=== PATIENT | male | born 1995 | race Caucasian/White ===

== ENCOUNTER 2018-03-30 08:20 | Inpatient (IN) | payer OTHER ==
[2018-03-30 08:48] VITALS: BMI 20.9
--- NOTE | 2018-03-30 11:13 | HP ---
COWS - Scale Resting Pulse: 0= [place] 80 or Below Sweatin= Chills/Flushing Restless Observation: 3= Extraneous Movement Pupil Size: 2= Moderately Dilated Bone or Joint Aches: 2= Severe Diffuse Aches Runny Nose/ Eye Tearin= Runny Nose/Eyes GI Upset > 30mins: 3= Vomiting/Diarrhea Tremor Observation: 2= Slight Tremor Visible Yawning Observation: 2= >3x During Session Anxiety or Irritability: 2=Irritable/Anxious Goose Flesh Skin: 0=Smooth Skin COWS Score: 19 CIWA Score - CIWA Score Nausea/Vomitin Muscle Tremors: 3 Anxiety: 3 Agitation: 2 Paroxysmal Sweats: 1-Minimal Palms Moist Orientation: 0-Oriented Tacttile Disturbances: 1-Very Mild Itch/Numbness Auditory Disturbances: 1-Very Mild Visual Disturbances: 0-None Headache: 2-Mild CIWA-Ar Total Score: 16 Admission ROS BHS - HPI Chief Complaint: i need help to stop using heroin,alcohol and crack Allergies/Adverse Reactions: Allergies Allergy/AdvReac Type Severity Reaction Status Date / Time buprenorphine HCl Allergy Severe Itching Verified 03/30/18 10:30 [From Suboxone] naloxone HCl [From Suboxone] Allergy Severe Itching Verified 03/30/18 10:30 History of Present Illness: this 22 years old male with heroin,alcohol and crack dependence,seeking detox, withdrawal symptom,last treatment at [facility] in 2017 syncope anxiety,depression multiple admissions in the past,keep relapsing weight loss longest period of sobriety 6 months Exam Limitations: No Limitations - Ebola screening Have you traveled outside of the country in the last 21 days: No Have you had contact with anyone from an Ebola affected area: No Have you been sick,other than usual withdrawal symptoms: No Do you have a fever: No - Review of Systems Constitutional: Chills, Loss of Appetite, Malaise, Night Sweats, Changes in sleep, Weakness, Unintentional Wgt. Loss EENT: reports: Tearing, Nose Congestion Respiratory: reports: No Symptoms reported Cardiac: reports: No Symptoms Reported GI: reports: Diarrhea, Nausea, Vomiting, Abdominal cramping : reports: No Symptoms Reported Musculoskeletal: reports: Back Pain, Muscle Pain Integumentary: reports: Dryness Neuro: reports: Headache, Tremors Endocrine: reports: No Symptoms Reported Hematology: reports: No Symptoms Reported Psychiatric: reports: No Sypmtoms Reported, Judgement Intact, Mood/Affect Appropiate, Orientated x3, Anxious, Depressed Patient History - Patient Medical History Hx Anemia: No Hx Asthma: No Hx Chronic Obstructive Pulmonary Disease (COPD): No Hx Cancer: No Hx Cardiac Disorders: No Hx Congestive Heart Failure: No Hx Hypertension: No Hx Hypercholesterolemia: No Hx Pacemaker: No HX Cerebrovascular Accident: No Hx Seizures: No Hx Dementia: No Hx Diabetes: No Hx Gastrointestinal Disorders: No Hx Liver Disease: No Hx Genitourinary Disorders: No Hx Sexually Transmitted Disorders: No Hx Renal Disease (ESRD): No Hx Thyroid Disease: No Hx Human Immunodeficiency Virus (HIV): No (negative 2017 nrgative) Hx Hepatitis C: No Hx Depression: Yes (anxiety) Hx Suicide Attempt: No Hx Bipolar Disorder: No Hx Schizophrenia: No Other Medical History: no suicidal,no homicidal - Patient Surgical History Past Surgical History: No Hx Neurologic Surgery: No Hx Cataract Extraction: No Hx Cardiac Surgery: No Hx Lung Surgery: No Hx Breast Surgery: No Hx Breast Biopsy: No Hx Abdominal Surgery: No Hx Appendectomy: No Hx Cholecystectomy: No Hx Genitourinary Surgery: No Hx Section: No Hx Orthopedic Surgery: No Anesthesia Reaction: No - PPD History Previous Implant?: Yes Documented Results: Negative w/proof Implanted On Prior [facility] Admission?: Yes Date: 01/03/15 Results: 0 mm PPD to be Administered?: Yes - Smoking Cessation Smoking history: Current every day smoker Have you smoked in the past 12 months: Yes Aproximately how many cigarettes per day: 20 Cigars Per Day: 0 Hx Chewing Tobacco Use: No Initiated information on smoking cessation: Yes 'Breaking Loose' booklet given: 03/30/18 - Substance & Tx. History Hx Alcohol Use: Yes Hx Substance Use: Yes Substance Use Type: Alcohol, Cocaine, Heroin Hx Substance Use Treatment: Yes ([facility] 2016) - Substances Abused Heroin Route: Inhalation Frequency: Daily Amount used: 3-4 bags Age of first use: 19 Date of Last Use: 03/29/18 Crack Route: Smoking Frequency: Daily Amount used: $100 Age of first use: 19 Date of Last Use: 03/29/18 Alcohol-vodka/beer Route: Oral Frequency: Daily Amount used: 1 pt./1-6 pk. Age of first use: 11 Date of Last Use: 03/29/18 Family Disease History - Family Disease History Family Disease History: Other: Father (dsa), Sister (alcohol) Admission Physical Exam [facility] - Vital Signs Vital Signs: Vital Signs - 24 hr 03/30/18 08:43 Temperature 98.4 F Pulse Rate 77 Respiratory 18 Rate Blood Pressure 108/68 - Physical General Appearance: Yes: Moderate Distress, Tremorous, Irritable, Sweating, Anxious HEENTM: Yes: Normal ENT Inspection, RAMIRO, Pharynx Normal, Other (abrasion of nose stated scratch herself rash of neck) Respiratory: Yes: Lungs Clear, Normal Breath Sounds, No Respiratory Distress Neck: Yes: Within Normal Limits, Supple, Trachea in good position, Other (rash of neck) Breast: Yes: Within Normal Limits Cardiology: Yes: Within Normal Limits, Regular Rhythm, Regular Rate, S1, S2 Abdominal: Yes: Within Normal Limits, Normal Bowel Sounds, Non Tender, Soft Genitourinary: Yes: Within Normal Limits Back: Yes: Muscle Spasm Musculoskeletal: Yes: Within Normal Limits, Muscle Pain Extremities: Yes: Tremors Neurological: Yes: missileman II-XII NML intact, Alert, Motor Strength 5/5 Integumentary: Yes: Dry Lymphatic: Yes: Within Normal Limits - Diagnostic (1) Opioid dependence with withdrawal Current Visit: Yes Status: Acute (2) Alcohol dependence with uncomplicated withdrawal Current Visit: Yes Status: Acute (3) Weight loss Current Visit: Yes Status: Acute (4) Nicotine dependence Current Visit: Yes Status: Acute (5) Abrasion Current Visit: Yes Status: Acute (6) Anxiety and depression Current Visit: Yes Status: Acute Cleared for Admission [facility] - Detox or Rehab [facility] Level of Care: Medically Managed Detox Regimen/Protocol: Methadone/Librium [facility] Breath Alcohol Content Breath Alcohol Content: 0 Urine Drug Screen - Results Drug Screen Negative: No Urine Drug Screen Results: ABIEL-Cocaine, OPI-Opiates
[2018-03-30] MEDS ORDERED: LOPERAMIDE HCL 2 MG CAPSULE PO PRN (11:30)
[2018-03-30] MEDS ORDERED: MAG HYDROX/AL HYDROX/SIMETH 30 ML UNIT-DOSE CUP PO PRN (11:30)
[2018-03-30] MEDS ORDERED: IBUPROFEN 400 MG TABLET (FP) PO PRN (11:30)
[2018-03-30] MEDS ORDERED: MENTHOL/PHENOL 1 EACH UD MM PRN (11:30)
[2018-03-30] MEDS ORDERED: MAGNESIUM HYDROX 2400MG/30ML ORAL SUSPENSION 30 ML CUP PO PRN (11:30)
[2018-03-30] MEDS ORDERED: hydrOXYzine PAMOATE 25 MG CAPSULE (FP) PO PRN (11:30)
[2018-03-30] MEDS ORDERED: P-EPHED 60MG/TRIPROLIDI 2.5MG TABLET PO PRN (11:30)
[2018-03-30] MEDS ORDERED: ACETAMINOPHEN 325 MG TABLET (FP) PO PRN (11:30)
[2018-03-30] MEDS ORDERED: guaiFENesin/D-METHORPHAN HB 10 ML UNIT-DOSE CUPS PO PRN (11:30)
[2018-03-30] MEDS ORDERED: MAGNESIUM CITRATE 300 ML BOTTLE PO PRN (11:30)
[2018-03-30] MEDS ORDERED: chlordiazePOXIDE HCL 25 MG CAPSULE PO PRN (11:30)
[2018-03-30] MEDS ORDERED: METHADONE HCL 10 MG TABLET (FOR DETOX USE ONLY) PO ONE ×2 (11:45→23:00)
[2018-03-30] MEDS: NICOTINE POLACRILEX 2 MG GUM BUC PRN ×4 (12:38→22:24)
--- NOTE | 2018-03-30 14:13 | CONSULT ---
[facility] Psychiatric Consult - Data Date of interview: 03/30/18 Admission source: [facility] Identifying data: Readmission to [facility] for this 22 y/o male seeking detox treatment on for alcohol,heroin and cocaine dependence.Patient is single without dependents,homeless,unemployed and supported on SSI benefits. Substance Abuse History: Discussed in this interview.Reported by the patient on admission to [facility] : Smoking history: Current every day smoker. Have you smoked in the past 12 months: Yes. Aproximately how many cigarettes per day: 20. Cigars Per Day: 0. Hx Chewing Tobacco Use: No. Initiated information on smoking cessation: Yes. 'Breaking Loose' booklet given: 03/30/18. - Substance & Tx. History. Hx Alcohol Use: Yes. Hx Substance Use: Yes. Substance Use Type : Alcohol, Cocaine, Heroin. Hx Substance Use Treatment: Yes ([facility] 2016). - Substances Abused. Heroin. Route: Inhalation. Frequency: Daily. Amount used: 3-4 bags. Age of first use: 19. Date of Last Use: 03/29/18. * * Crack. Route: Smoking. Frequency: Daily. Amount used: $100. Age of first use: 19. Date of Last Use: 03/29/18. Alcohol-vodka/beer. Route: Oral. Frequency: Daily. Amount used: 1 pt./1-6 pk. Age of first use: 11. Date of Last Use: 03/29/18 Medical History: Patient endorses good general health.Noted abrasion on the nose.Patient reports allergy to buprenorphine and naloxone. Psychiatric History: Onset on psychiatric disturbances (age 11-12).First psychiatric treatment was at [facility] for the management of an eating disorder (unclear).It appears that, at the time, the patient's nutritional status became compromised because of decreased food intake due to irrational fear of choking.Treated, then, with Risperdal and Luvox.Patient endorses a history of 4-5 psychiatric hospitalizations (all at [facility] in [facility]).Past treatment with abilify and anafranil.Diagnosed with Generalized Anxiety Disorder.Mr Rivas is currently in OPD treatment at [facility] in [place].On a regimen of risperdal 1 mg/hs + zoloft 100 mg/day.Adherence remains questionable.Patient denies history of suicide attempts. Physical/Sexual Abuse/Trauma History: Patient denies history of abuse. Additional Comment: Urine Drug Screen Results: ABIEL-Cocaine, OPI-Opiates.Noted. Mental Status Exam - Mental Status Exam Alert and Oriented to: Time, Place Cognitive Function: Good Patient Appearance: Unkempt, Disheveled (tattoo of a skull with a penetrating sword painted on left forearm) Mood: Nervous, Withdrawn, Anxious Affect: Mood Congruent, Constricted Patient Behavior: Fatigued, Cooperative Speech Pattern: Clear, Appropriate Voice Loudness: Normal Thought Process: Intact, Goal Oriented Thought Disorder: Not Present Hallucinations: Denies Suicidal Ideation: Denies Homicidal Ideation: Denies Insight/Judgement: Poor Sleep: Poorly, Difficulty falling asleep Appetite: Good Muscle strength/Tone: Normal Gait/Station: Normal Psychiatric Findings - Problem List ([place] 1, 2,3) (1) Alcohol dependence with uncomplicated withdrawal Current Visit: Yes Status: Acute (2) Opioid dependence with withdrawal Current Visit: Yes Status: Acute (3) Cocaine dependence Current Visit: Yes Status: Acute (4) Nicotine dependence Current Visit: Yes Status: Acute (5) PENNIE (generalized anxiety disorder) Current Visit: Yes Status: Chronic (6) Substance induced mood disorder Current Visit: Yes Status: Acute (7) Insomnia Current Visit: Yes Status: Acute - Initial Treatment Plan Initial Treatment Plan: Psychoeducation.Sleep hygiene.Detoxification in progress.Medications : zoloft 100 mg po daily + risperdal 1 mg po hs.Side effects/benefits of both drugs are explained to the patient.Additional risks for sexual impotence,galactorrhea,gynecomastia,abnormal involuntary movements, dyskinesias and suicidal ideation.Also discussed.Patient endorses his medications as effective and well tolerated.Mr Rivas requests their inclusion in his current regime of medications.Observation.
[2018-03-30] MEDS: chlordiazePOXIDE HCL 25 MG CAPSULE PO SCH ×2 (17:39→22:25)
[2018-03-30] MEDS ORDERED: risperiDONE 1 MG TABLET (FP) PO SCH (22:00)
[2018-03-30] MEDS ORDERED: MELATONIN 5 MG TABLETS PO PRN (22:00)
[2018-03-30] MEDS ORDERED: THIAMINE HCL 100 MG TABLET (FP) PO SCH (22:00)
--- NOTE | 2018-03-30 23:24 | PN ---
[facility] Progress Note Note: Called regarding patient B/P of 99/55 and HR;71. Patient was due Methadone and Librium. Patient w/o tremors or other alcohol w/drawal symptoms. Vital Signs 03/30/18 03/30/18 03/30/18 18:00 21:24 22:00 Temperature 97.6 F 97.0 F L Pulse Rate 76 55 L 71 Respiratory 18 18 Rate Blood Pressure 108/61 97/45 99/55 Hold Libruim and give Methadone. Encourage increased water intake.
[2018-03-31] MEDS: NICOTINE POLACRILEX 2 MG GUM BUC PRN (05:28)
[2018-03-31] MEDS: chlordiazePOXIDE HCL 25 MG CAPSULE PO SCH (06:33)
[2018-03-31] MEDS ORDERED: SERTRALINE HCL 50 MG TABLET (FP) PO SCH (07:00)
[2018-03-31 09:33] VITALS: BP 110/66; PULSE 73; TEMP 97.4
[2018-03-31] MEDS ORDERED: PRENATAL VITAMINS W/ FOLIC ACID TABLET (FP) PO SCH (10:00)
[2018-03-31] MEDS ORDERED: METHADONE HCL 10 MG TABLET (FOR DETOX USE ONLY) PO SCH (10:00)
[2018-03-31 10:29] LABS: HEMATOCRIT 39.4 % (35.4-49); HEMOGLOBIN 13.5 GM/dL (11.7-16.9); MCH 30.6 pg (25.7-33.7); MCHC 34.2 g/dl (32.0-35.9); MEAN CELL VOLUME 89.5 fl (80-96); MEAN PLT VOLUME 8.7 fl (7.5-11.1); PLATELET COUNT 267 K/MM3 (134-434); WHITE BLOOD COUNT 8.7 K/mm3 (4.0-10.0)
[2018-03-31 11:15] LABS: ALBUMIN 4.2 g/dl (3.4-5.0); ANION GAP 5 (8-16); BLOOD UREA NITROGEN 24 mg/dL (7-18); CALCIUM 9.1 mg/dL (8.5-10.1); CHLORIDE 105 mmol/L (98-107); CO2 29 mmol/L (21-32); GLUCOSE,RANDOM 97 mg/dL (74-106); POTASSIUM 4.3 mmol/L (3.5-5.1); SGOT/AST 62 U/L (15-37); SGPT/ALT 27 U/L (12-78); SODIUM 139 mmol/L (136-145)
[2018-03-31 11:16] LABS: ALK PHOS 74 U/L (45-117); BILIRUBIN,TOTAL 0.7 mg/dL (0.2-1.0); CREATININE 1.3 mg/dL (0.7-1.3); TOT PROT 7.3 g/dl (6.4-8.2)
--- NOTE | 2018-03-31 14:15 | PN ---
S CIWA - CIWA Score Nausea/Vomitin-No Nausea/No Vomiting Muscle Tremors: 3 Anxiety: 4-Mod. Anxious/Guarded Agitation: 4-Moderately Restless Paroxysmal Sweats: 3 Orientation: 0-Oriented Tacttile Disturbances: 2-Mild Itch/Numbness/Burn Auditory Disturbances: 0-None Visual Disturbances: 1-Very Mild Sensitivity Headache: 0-None Present CIWA-Ar Total Score: 17 BHS COWS - Scale Resting Pulse: 0= [place] 80 or Below Sweatin= Chills/Flushing Restless Observation: 1= Difficult to Sit Still Pupil Size: 0= Normal to Room Light Bone or Joint Aches: 2= Severe Diffuse Aches Runny Nose/ Eye Tearin= Nasal Congestion GI Upset > 30mins: 0= None Tremor Observation of Outstretched Hands: 2= Slight Tremor Visible Yawning Observation: 1= 1-2x During Session Anxiety or Irritability: 2=Irritable/Anxious Goose Flesh Skin: 3=Piloerection COWS Score: 13 BHS Progress Note (SOAP) Subjective: Sweating, Anxious, Body Aches, Tremors. Objective: PATIENT A & O X 3, OBSERVED AMBULATING ON UNIT. NO ACUTE DISTRESS. 03/31/18 14:13 Vital Signs Temperature 97.4 F L 03/31/18 09:32 Pulse Rate 73 03/31/18 09:32 Respiratory Rate 16 03/31/18 09:32 Blood Pressure 110/66 03/31/18 09:32 O2 Sat by Pulse Oximetry (%) Laboratory Tests 03/30/18 03/31/18 03/31/18 11:00 06:00 06:00 WBC 8.7 RBC 4.40 Hgb 13.5 Hct 39.4 MCV 89.5 MCH 30.6 MCHC 34.2 RDW 14.0 Plt Count 267 MPV 8.7 Sodium 139 Potassium 4.3 Chloride 105 Carbon Dioxide 29 Anion Gap 5 L BUN 24 H Creatinine 1.3 Creat Clearance w eGFR > 60 Random Glucose 97 D Calcium 9.1 Total Bilirubin 0.7 AST 62 H D ALT 27 D Alkaline Phosphatase 74 Total Protein 7.3 Albumin 4.2 RPR Titer HIV 1&2 Antibody Screen Negative HIV P24 Antigen Negative 03/31/18 06:00 WBC RBC Hgb Hct MCV MCH MCHC RDW Plt Count MPV Sodium Potassium Chloride Carbon Dioxide Anion Gap BUN Creatinine Creat Clearance w eGFR Random Glucose Calcium Total Bilirubin AST ALT Alkaline Phosphatase Total Protein Albumin RPR Titer Nonreactive HIV 1&2 Antibody Screen HIV P24 Antigen LABS NOTED. UA RESULTS PENDING. 03/31/18 14:14 Assessment: 03/31/18 14:13 WITHDRAWAL SYMPTOMS. Plan: CONTINUE DETOX. INCREASE DAILY PO FLUID INTAKE.
--- NOTE | 2018-03-31 14:19 | DS ---
[facility] Detox Discharge Summary Admission Date: 03/30/18 Discharge Date: 03/31/18 - History Present History: Alcohol Dependence, Cocaine Dependence, Opioid Dependence Additional Comments: PATIENT DOES NOT WISH TO REMAIN TO COMPLETE DETOX REGIMEN. RISKS OF LEAVING DETOX UNIT AGAINST MEDICAL ADVICE AND PRIOR TO COMPLETION OF DETOX REGIMEN EXPLAINED TO PATIENT. PATIENT ADVISED TO GO IMMEDIATELY TO NEAREST ER SHOULD ANY INTOLERABLE DETOX SYMPTOMS DEVELOP AT ANY TIME. PATIENT LEFT DETOX UNIT IN STABLE MEDICAL CONDITION. Pertinent Past History: History of Depression, History of Generalized Anxiety Disorder, Nicotine Dependence, Insomnia, Weight Loss, Abrasion. - Physical Exam Results Vital Signs: Vital Signs Temperature 97.4 F L 03/31/18 09:32 Pulse Rate 73 03/31/18 09:32 Respiratory Rate 16 03/31/18 09:32 Blood Pressure 110/66 03/31/18 09:32 O2 Sat by Pulse Oximetry (%) Pertinent Admission Physical Exam Findings: WITHDRAWAL SYMPTOMS. Laboratory Tests 03/30/18 03/31/18 03/31/18 11:00 06:00 06:00 WBC 8.7 RBC 4.40 Hgb 13.5 Hct 39.4 MCV 89.5 MCH 30.6 MCHC 34.2 RDW 14.0 Plt Count 267 MPV 8.7 Sodium 139 Potassium 4.3 Chloride 105 Carbon Dioxide 29 Anion Gap 5 L BUN 24 H Creatinine 1.3 Creat Clearance w eGFR > 60 Random Glucose 97 D Calcium 9.1 Total Bilirubin 0.7 AST 62 H D ALT 27 D Alkaline Phosphatase 74 Total Protein 7.3 Albumin 4.2 RPR Titer HIV 1&2 Antibody Screen Negative HIV P24 Antigen Negative 03/31/18 06:00 WBC RBC Hgb Hct MCV MCH MCHC RDW Plt Count MPV Sodium Potassium Chloride Carbon Dioxide Anion Gap BUN Creatinine Creat Clearance w eGFR Random Glucose Calcium Total Bilirubin AST ALT Alkaline Phosphatase Total Protein Albumin RPR Titer Nonreactive HIV 1&2 Antibody Screen HIV P24 Antigen LABS NOTED. - Treatment Hospital Course: Detoxed Safely - Medication Discharge Medications: Ambulatory Orders Risperidone [Risperdal] 1 mg PO HS 03/30/18 Sertraline HCl [Zoloft] 100 mg PO AM 03/30/18 - Diagnosis (1) Alcohol dependence with uncomplicated withdrawal Status: Acute (2) Nicotine dependence Status: Acute Qualifiers: Nicotine product type: cigarettes Substance use status: uncomplicated Qualified Code(s): F17.210 - Nicotine dependence, cigarettes, uncomplicated (3) Opioid dependence with withdrawal Status: Acute (4) Weight loss Status: Acute (5) PENNIE (generalized anxiety disorder) Status: Chronic (6) Substance induced mood disorder Status: Acute - AMA Did Patient Leave Against Medical Advice: Yes (PATIENT DID NOT WISH TO REMAIN TO COMPLETE DETOX REGIMEN.)
[2018-03-31] MEDS ORDERED: chlordiazePOXIDE HCL 25 MG CAPSULE PO SCH (17:00)
--- NOTE | 2018-03-31 19:05 | EKG ---
Test Reason : Blood Pressure : / mmHG Vent. Rate : 047 BPM Atrial Rate : 047 BPM P-R Int : 144 ms QRS Dur : 090 ms QT Int : 440 ms P-R-T Axes : -02 -12 000 degrees QTc Int : 389 ms SINUS BRADYCARDIA VOLTAGE CRITERIA FOR LEFT VENTRICULAR HYPERTROPHY ABNORMAL ECG NO PREVIOUS ECGS AVAILABLE Confirmed by MD MONICA, CAROLANN ([id number]) on 03/31/2018 7:05:01 PM Referred By: Confirmed By:CAROLANN ANDERSON MD
[2018-04-01] MEDS ORDERED: METHADONE HCL 5 MG TABLET (FOR DETOX USE ONLY) PO SCH (10:00)
[2018-04-01] MEDS ORDERED: chlordiazePOXIDE 5 MG CAPSULE PO SCH (17:00)
[2018-04-02] MEDS ORDERED: chlordiazePOXIDE HCL 10 MG CAPSULE PO SCH (17:00)
[2018-04-03] MEDS ORDERED: METHADONE HCL 10 MG TABLET (FOR DETOX USE ONLY) PO SCH (10:00)
[2018-04-04] MEDS ORDERED: METHADONE HCL 5 MG TABLET (FOR DETOX USE ONLY) PO SCH (06:00)
== END 2018-03-31 09:35 | disposition left against medical advice (07) | DRG 770 ==
LOC: YASAS 08:20 → Y3N 11:28
PROVIDERS: ADMIT Surgery; ATTEND Surgery
PROC: HZ2ZZZZ Detoxification Services for Substance Abuse Treatment (ICD-10-PCS; principal; 2018-03-30)
DX: F11.23 Opioid dependence with withdrawal (principal); F10.230 Alcohol dependence with withdrawal, uncomplicated; F12.20 Cannabis dependence, uncomplicated; F17.210 Nicotine dependence, cigarettes, uncomplicated; F19.24 Other psychoactive substance dependence with psychoactive substance-induced mood disorder; F41.1 Generalized anxiety disorder; F41.8 Other specified anxiety disorders; G47.00 Insomnia, unspecified; Z87.898 Personal history of other specified conditions
CPT/HCPCS: 36415; 80053; 85027; 86593; 87389; 93005; 93010; J2794

== ENCOUNTER 2018-04-18 16:05 | Inpatient (IN) | payer OTHER ==
[2018-04-18 17:02] VITALS: BMI 20.7
--- NOTE | 2018-04-18 22:21 | HP ---
Admission [facility] Chief Complaint: alcohol, cocaine and heroin rehabilitation Allergies/Adverse Reactions: Allergies Allergy/AdvReac Type Severity Reaction Status Date / Time No Known Allergies Allergy Verified 04/18/18 20:22 History of Present Illness: 22 yo male with hx of nicotine, intravenous heroin, cocaine and alcohol dependence is here seeking rehabilitation. Last detox [facility] 03/30/18 -03/31/18 left AMA. Patient reports he was admitted to [facility] Psych [facility] for 04/03/18 - patient reported he was trying top get into rehab and stated he was suicidal. Patient denies any homicidal / suicidal ideation ideation. PMHX: anxiety. Reports overdose x 4, last episode about two weeks ago. Longest period of sobriety eight months. Exam Limitations: No Limitations - Ebola screening Have you traveled outside of the country in the last 21 days: No Have you had contact with anyone from an Ebola affected area: No Have you been sick,other than usual withdrawal symptoms: No Do you have a fever: No - Review of Systems Constitutional: No Symptoms Reported EENT: reports: No Symptoms Reported Respiratory: reports: No Symptoms reported Cardiac: reports: No Symptoms Reported GI: reports: No Symptoms Reported : reports: No Symptoms Reported Musculoskeletal: reports: No Symptoms Reported Neuro: reports: No Symptoms reported Endocrine: reports: No Symptoms Reported Hematology: reports: No Symptoms Reported Psychiatric: reports: Mood/Affect Appropiate, Orientated x3, Anxious Other Systems: Reviewed and Negative Patient History - Patient Medical History Hx Anemia: No Hx Asthma: No Hx Chronic Obstructive Pulmonary Disease (COPD): No Hx Cancer: No Hx Cardiac Disorders: No Hx Congestive Heart Failure: No Hx Hypertension: No Hx Hypercholesterolemia: No Hx Pacemaker: No HX Cerebrovascular Accident: No Hx Seizures: No Hx Dementia: No Hx Diabetes: No Hx Gastrointestinal Disorders: No Hx Liver Disease: No Hx Genitourinary Disorders: No Hx Sexually Transmitted Disorders: No Hx Renal Disease (ESRD): No Hx Thyroid Disease: No Hx Human Immunodeficiency Virus (HIV): No (negative 2017 nrgative) Hx Hepatitis C: No Hx Depression: Yes (anxiety) Hx Suicide Attempt: No Hx Bipolar Disorder: No Hx Schizophrenia: No - Patient Surgical History Past Surgical History: No Hx Neurologic Surgery: No Hx Cataract Extraction: No Hx Cardiac Surgery: No Hx Lung Surgery: No Hx Breast Surgery: No Hx Breast Biopsy: No Hx Abdominal Surgery: No Hx Appendectomy: No Hx Cholecystectomy: No Hx Genitourinary Surgery: No Hx Section: No Hx Orthopedic Surgery: No Anesthesia Reaction: No - PPD History Previous Implant?: No Documented Results: Negative w/proof Date: 04/01/18 Results: 0 mm PPD to be Administered?: No - Smoking Cessation Smoking history: Current every day smoker Have you smoked in the past 12 months: Yes Aproximately how many cigarettes per day: 20 Cigars Per Day: 0 Hx Chewing Tobacco Use: No Initiated information on smoking cessation: Yes 'Breaking Loose' booklet given: 04/18/18 - Substance & Tx. History Hx Alcohol Use: Yes Hx Substance Use: Yes Substance Use Type: Alcohol, Cocaine, Heroin Hx Substance Use Treatment: Yes (Last detox [facility] 03/30/18 -03/31/18 left AMA. ) - Substances Abused Alcohol Route: Oral Frequency: Daily Amount used: 1 pint liquor Age of first use: 11 Date of Last Use: 04/02/18 Cocaine Route: Inhalation Frequency: Daily Amount used: 1 gram Age of first use: 19 Date of Last Use: 04/01/18 Heroin Route: Injection Frequency: Daily Amount used: 2 - 3 bags Age of first use: 19 Date of Last Use: 04/02/18 Family Disease History - Family Disease History Family Disease History: Other: Father (dsa), Sister (alcohol) Admission Physical Exam BHS - Vital Signs Vital Signs: Vital Signs - 24 hr 04/18/18 17:00 Temperature 97.8 F Pulse Rate 94 H Respiratory 18 Rate Blood Pressure 140/78 - Physical General Appearance: Yes: Appropriately Dressed, Thin, Anxious HEENTM: Yes: EOMI, Hearing grossly Normal, Normal ENT Inspection, Normocephalic , Normal Voice, RAMIRO, Pharynx Normal, Tm's normal Respiratory: Yes: Chest Non-Tender, Lungs Clear, Normal Breath Sounds, No Respiratory Distress, No Accessory Muscle Use Neck: Yes: Within Normal Limits Breast: Yes: Breast Exam Deferred Cardiology: Yes: Regular Rhythm, Regular Rate Abdominal: Yes: Normal Bowel Sounds, Non Tender, Flat, Soft Genitourinary: Yes: Within Normal Limits Back: Yes: Normal Inspection Musculoskeletal: Yes: full range of Motion, Gait Steady, Pelvis Stable Extremities: Yes: Normal Capillary Refill, Normal Inspection, Normal Range of Motion, Non-Tender Neurological: Yes: Within Normal Limits Integumentary: Yes: Normal Color, Dry, Warm Lymphatic: Yes: Within Normal Limits - Diagnostic (1) Alcohol dependence Current Visit: Yes Status: Acute Qualifiers: Substance use status: uncomplicated Qualified Code(s): F10.20 - Alcohol dependence, uncomplicated (2) Cocaine dependence Current Visit: Yes Status: Acute Qualifiers: Substance use status: uncomplicated Qualified Code(s): F14.20 - Cocaine dependence, uncomplicated (3) Nicotine dependence Current Visit: Yes Status: Acute Qualifiers: Nicotine product type: cigarettes Substance use status: uncomplicated Qualified Code(s): F17.210 - Nicotine dependence, cigarettes, uncomplicated (4) Opioid dependence Current Visit: Yes Status: Acute (5) Nicotine dependence Current Visit: Yes Status: Chronic Qualifiers: Nicotine product type: cigarettes BHS Breath Alcohol Content Breath Alcohol Content: 0 Urine Drug Screen - Results Drug Screen Negative: Yes Inpatient Rehab Admission - Initial Determination Are CD services needed?: Yes Free of communicable disease: Yes Not in need of hospitalization: Yes - Rehab Admission Criteria Previous failed treatment: Yes Poor recovery environment: Yes Comorbidities: Yes Lacks judgement: Yes Patient is meeting Inpatient Rehab admission criteria:: Yes
[2018-04-18] MEDS ORDERED: ACETAMINOPHEN 325 MG TABLET (FP) PO PRN (22:27)
[2018-04-18] MEDS ORDERED: P-EPHED 60MG/TRIPROLIDI 2.5MG TABLET PO PRN (22:27)
[2018-04-18] MEDS ORDERED: MAGNESIUM HYDROX 2400MG/30ML ORAL SUSPENSION 30 ML CUP PO PRN (22:27)
[2018-04-18] MEDS ORDERED: MENTHOL/PHENOL 1 EACH UD MM PRN (22:27)
[2018-04-18] MEDS ORDERED: MAGNESIUM CITRATE 300 ML BOTTLE PO PRN (22:27)
[2018-04-18] MEDS ORDERED: guaiFENesin/D-METHORPHAN HB 10 ML UNIT-DOSE CUPS PO PRN (22:27)
[2018-04-18] MEDS ORDERED: LOPERAMIDE HCL 2 MG CAPSULE PO PRN (22:27)
[2018-04-18] MEDS ORDERED: MAG HYDROX/AL HYDROX/SIMETH 30 ML UNIT-DOSE CUP PO PRN (22:27)
[2018-04-19] MEDS: NICOTINE 14 MG/24 HOURS TOPICAL PATCH TD SCH (10:04)
[2018-04-19] MEDS: PRENATAL VITAMINS W/ FOLIC ACID TABLET (FP) PO SCH (10:04)
--- NOTE | 2018-04-19 10:15 | PN ---
S Progress Note Note: Psychiatric nurse practitoner note: Call received by RN requesting patient's medications. Chart reviewed. Will order Zoloft 100mg qhs + risperdal 1mg.
[2018-04-19] MEDS: SERTRALINE HCL 50 MG TABLET (FP) PO SCH (10:23)
[2018-04-19] MEDS: NICOTINE POLACRILEX 2 MG GUM BC PRN ×4 (10:24→17:27)
[2018-04-19 11:02] LABS: CHLORIDE 105 mmol/L (98-107); POTASSIUM 4.6 mmol/L (3.5-5.1); SODIUM 139 mmol/L (136-145)
[2018-04-19 11:31] LABS: ALBUMIN 3.9 g/dl (3.4-5.0); ALK PHOS 60 U/L (45-117); ANION GAP 6 MMOL/L (8-16); BILIRUBIN,TOTAL 0.3 mg/dL (0.2-1.0); BLOOD UREA NITROGEN 18 mg/dL (7-18); CALCIUM 8.9 mg/dL (8.5-10.1); CO2 28 mmol/L (21-32); CREATININE 0.9 mg/dL (0.7-1.3); GLUCOSE,RANDOM 86 mg/dL (74-106); SGOT/AST 16 U/L (15-37); SGPT/ALT 21 U/L (12-78); TOT PROT 7.2 g/dl (6.4-8.2)
[2018-04-19 11:48] LABS: HEMATOCRIT 39.4 % (35.4-49); HEMOGLOBIN 13.2 GM/dL (11.7-16.9); MCH 29.6 pg (25.7-33.7); MCHC 33.6 g/dl (32.0-35.9); MEAN PLT VOLUME 8.7 fl (7.5-11.1); PLATELET COUNT 293 K/MM3 (134-434); RBC 4.47 M/mm3 (4.00-5.60); RDW 13.6 % (11.9-15.9); WHITE BLOOD COUNT 6.2 K/mm3 (4.0-10.0)
--- NOTE | 2018-04-19 13:48 | EKG ---
Test Reason : Blood Pressure : / mmHG Vent. Rate : 042 BPM Atrial Rate : 042 BPM P-R Int : 142 ms QRS Dur : 100 ms QT Int : 444 ms P-R-T Axes : 051 069 064 degrees QTc Int : 370 ms MARKED SINUS BRADYCARDIA ABNORMAL ECG WHEN COMPARED WITH ECG OF 30-MAR-2018 11:47, QUESTIONABLE CHANGE IN QRS AXIS T WAVE INVERSION NO LONGER EVIDENT IN INFERIOR LEADS Confirmed by MUSA BLAKELY, STEVE ([id number]) on 04/19/2018 1:48:22 PM Referred By: Confirmed By:STEVE VIGIL MD
[2018-04-19 19:13] LABS: URINE APPEARANCE CLOUDY; URINE BILIRUBIN NEGATIVE (<2.0 mg/dL); URINE COLOR AMBER; URINE GLUCOSE (UA) NEGATIVE (NEGATIVE); URINE KETONE NEGATIVE (NEGATIVE); URINE LEUK ESTERASE NEGATIVE (NEGATIVE); URINE NITRITE NEGATIVE (NEGATIVE); URINE PROTEIN NEGATIVE (NEGATIVE); URINE UROBILINOGEN NEGATIVE mg/dL (0.2-1.0)
[2018-04-19] MEDS: THIAMINE HCL 100 MG TABLET (FP) PO SCH (21:23)
[2018-04-19] MEDS: risperiDONE 1 MG TABLET (FP) PO SCH (21:23)
[2018-04-20] MEDS: SERTRALINE HCL 50 MG TABLET (FP) PO SCH (10:46)
[2018-04-20] MEDS: PRENATAL VITAMINS W/ FOLIC ACID TABLET (FP) PO SCH (10:46)
[2018-04-20] MEDS: NICOTINE POLACRILEX 2 MG GUM BC PRN ×3 (10:47→17:24)
[2018-04-20] MEDS: NICOTINE 14 MG/24 HOURS TOPICAL PATCH TD SCH (10:50)
[2018-04-20] MEDS: THIAMINE HCL 100 MG TABLET (FP) PO SCH (22:17)
[2018-04-20] MEDS: MELATONIN 5 MG TABLETS PO PRN (22:19)
[2018-04-20] MEDS: hydrOXYzine PAMOATE 50 MG CAPSULE (FP) PO PRN (22:19)
[2018-04-20] MEDS: risperiDONE 1 MG TABLET (FP) PO SCH (22:20)
[2018-04-21] MEDS: PRENATAL VITAMINS W/ FOLIC ACID TABLET (FP) PO SCH (10:20)
[2018-04-21] MEDS: SERTRALINE HCL 50 MG TABLET (FP) PO SCH (10:20)
[2018-04-21] MEDS: NICOTINE 14 MG/24 HOURS TOPICAL PATCH TD SCH (10:21)
[2018-04-21] MEDS: NICOTINE POLACRILEX 2 MG GUM BC PRN ×5 (10:22→21:21)
[2018-04-21] MEDS: hydrOXYzine PAMOATE 50 MG CAPSULE (FP) PO PRN (21:20)
[2018-04-21] MEDS: THIAMINE HCL 100 MG TABLET (FP) PO SCH (21:21)
[2018-04-21] MEDS: risperiDONE 1 MG TABLET (FP) PO SCH (21:21)
[2018-04-22] MEDS: SERTRALINE HCL 50 MG TABLET (FP) PO SCH (09:33)
[2018-04-22] MEDS: NICOTINE POLACRILEX 2 MG GUM BC PRN ×4 (09:33→19:49)
[2018-04-22] MEDS: NICOTINE 14 MG/24 HOURS TOPICAL PATCH TD SCH (09:33)
[2018-04-22] MEDS: PRENATAL VITAMINS W/ FOLIC ACID TABLET (FP) PO SCH (09:33)
[2018-04-22] MEDS: THIAMINE HCL 100 MG TABLET (FP) PO SCH (21:07)
[2018-04-22] MEDS: risperiDONE 1 MG TABLET (FP) PO SCH (21:07)
[2018-04-22] MEDS: hydrOXYzine PAMOATE 50 MG CAPSULE (FP) PO PRN (21:07)
[2018-04-23] MEDS: SERTRALINE HCL 50 MG TABLET (FP) PO SCH (09:45)
[2018-04-23] MEDS: PRENATAL VITAMINS W/ FOLIC ACID TABLET (FP) PO SCH (09:45)
[2018-04-23] MEDS: NICOTINE 14 MG/24 HOURS TOPICAL PATCH TD SCH (09:45)
[2018-04-23] MEDS: NICOTINE POLACRILEX 2 MG GUM BC PRN ×5 (09:45→20:00)
[2018-04-23] MEDS: THIAMINE HCL 100 MG TABLET (FP) PO SCH (22:12)
[2018-04-23] MEDS: risperiDONE 1 MG TABLET (FP) PO SCH (22:12)
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
[2018-04-24] MEDS: SERTRALINE HCL 50 MG TABLET (FP) PO SCH (09:56)
[2018-04-24] MEDS: NICOTINE 14 MG/24 HOURS TOPICAL PATCH TD SCH (09:56)
[2018-04-24] MEDS: PRENATAL VITAMINS W/ FOLIC ACID TABLET (FP) PO SCH (09:56)
[2018-04-24] MEDS: NICOTINE POLACRILEX 2 MG GUM BC PRN ×5 (09:57→21:13)
[2018-04-24] MEDS: risperiDONE 1 MG TABLET (FP) PO SCH (21:12)
[2018-04-24] MEDS: THIAMINE HCL 100 MG TABLET (FP) PO SCH (21:12)
[2018-04-25] MEDS: PRENATAL VITAMINS W/ FOLIC ACID TABLET (FP) PO SCH (09:41)
[2018-04-25] MEDS: NICOTINE 14 MG/24 HOURS TOPICAL PATCH TD SCH (09:41)
[2018-04-25] MEDS: SERTRALINE HCL 50 MG TABLET (FP) PO SCH (09:42)
[2018-04-25] MEDS: NICOTINE POLACRILEX 2 MG GUM BC PRN ×5 (09:43→21:09)
[2018-04-25] MEDS: THIAMINE HCL 100 MG TABLET (FP) PO SCH (21:08)
[2018-04-25] MEDS: risperiDONE 1 MG TABLET (FP) PO SCH (21:08)
[2018-04-26] MEDS: PRENATAL VITAMINS W/ FOLIC ACID TABLET (FP) PO SCH (09:45)
[2018-04-26] MEDS: SERTRALINE HCL 50 MG TABLET (FP) PO SCH (09:46)
[2018-04-26] MEDS: NICOTINE 14 MG/24 HOURS TOPICAL PATCH TD SCH (09:46)
[2018-04-26] MEDS: NICOTINE POLACRILEX 2 MG GUM BC PRN ×2 (09:47→12:40)
--- NOTE | 2018-04-26 15:27 | PN ---
S Progress Note Note: Vital Signs Temperature 97.5 F L 04/26/18 06:58 Pulse Rate 58 L 04/26/18 06:58 Respiratory Rate 16 04/26/18 06:58 Blood Pressure 113/66 04/26/18 06:58 O2 Sat by Pulse Oximetry (%) patient NRT, requested increase in nicotine gum from 2mg to 4mg , continue with nicoitne craving. dose adjusted to 4mg . continue to monitor
[2018-04-26] MEDS: NICOTINE POLACRILEX 4 MG GUM BUC PRN ×2 (17:35→21:08)
[2018-04-26] MEDS: THIAMINE HCL 100 MG TABLET (FP) PO SCH (21:07)
[2018-04-26] MEDS: risperiDONE 1 MG TABLET (FP) PO SCH (21:07)
[2018-04-27] MEDS: PRENATAL VITAMINS W/ FOLIC ACID TABLET (FP) PO SCH (09:50)
[2018-04-27] MEDS: NICOTINE POLACRILEX 4 MG GUM BUC PRN ×5 (09:50→21:06)
[2018-04-27] MEDS: SERTRALINE HCL 50 MG TABLET (FP) PO SCH (09:50)
[2018-04-27] MEDS: NICOTINE 14 MG/24 HOURS TOPICAL PATCH TD SCH (09:50)
[2018-04-27] MEDS: THIAMINE HCL 100 MG TABLET (FP) PO SCH (21:06)
[2018-04-27] MEDS: risperiDONE 1 MG TABLET (FP) PO SCH (21:06)
[2018-04-28] MEDS: NICOTINE 14 MG/24 HOURS TOPICAL PATCH TD SCH (10:08)
[2018-04-28] MEDS: SERTRALINE HCL 50 MG TABLET (FP) PO SCH (10:08)
[2018-04-28] MEDS: PRENATAL VITAMINS W/ FOLIC ACID TABLET (FP) PO SCH (10:08)
[2018-04-28] MEDS: NICOTINE POLACRILEX 4 MG GUM BUC PRN ×4 (10:09→21:53)
[2018-04-28] MEDS: risperiDONE 1 MG TABLET (FP) PO SCH (21:12)
[2018-04-28] MEDS: THIAMINE HCL 100 MG TABLET (FP) PO SCH (21:12)
[2018-04-29] MEDS: SERTRALINE HCL 50 MG TABLET (FP) PO SCH (09:50)
[2018-04-29] MEDS: PRENATAL VITAMINS W/ FOLIC ACID TABLET (FP) PO SCH (09:50)
[2018-04-29] MEDS: NICOTINE 14 MG/24 HOURS TOPICAL PATCH TD SCH (09:51)
[2018-04-29] MEDS: NICOTINE POLACRILEX 4 MG GUM BUC PRN ×4 (09:51→21:14)
[2018-04-29] MEDS: risperiDONE 1 MG TABLET (FP) PO SCH (21:14)
[2018-04-29] MEDS: THIAMINE HCL 100 MG TABLET (FP) PO SCH (21:14)
[2018-04-29] MEDS: MELATONIN 5 MG TABLETS PO PRN (21:14)
[2018-04-30] MEDS: NICOTINE 14 MG/24 HOURS TOPICAL PATCH TD SCH (10:05)
[2018-04-30] MEDS: PRENATAL VITAMINS W/ FOLIC ACID TABLET (FP) PO SCH (10:05)
[2018-04-30] MEDS: SERTRALINE HCL 50 MG TABLET (FP) PO SCH (10:05)
[2018-04-30] MEDS: NICOTINE POLACRILEX 4 MG GUM BUC PRN ×4 (10:06→21:29)
[2018-04-30] MEDS: THIAMINE HCL 100 MG TABLET (FP) PO SCH (21:29)
[2018-04-30] MEDS: risperiDONE 1 MG TABLET (FP) PO SCH (21:29)
[2018-04-30] MEDS: MELATONIN 5 MG TABLETS PO PRN (21:29)
[2018-05-01] MEDS: PRENATAL VITAMINS W/ FOLIC ACID TABLET (FP) PO SCH (09:52)
[2018-05-01] MEDS: SERTRALINE HCL 50 MG TABLET (FP) PO SCH (09:52)
[2018-05-01] MEDS: NICOTINE 14 MG/24 HOURS TOPICAL PATCH TD SCH (09:52)
[2018-05-01] MEDS: NICOTINE POLACRILEX 4 MG GUM BUC PRN ×5 (09:52→21:07)
[2018-05-01] MEDS: THIAMINE HCL 100 MG TABLET (FP) PO SCH (21:06)
[2018-05-01] MEDS: risperiDONE 1 MG TABLET (FP) PO SCH (21:06)
[2018-05-01] MEDS: MELATONIN 5 MG TABLETS PO PRN (21:06)
[2018-05-02] MEDS: PRENATAL VITAMINS W/ FOLIC ACID TABLET (FP) PO SCH (09:44)
[2018-05-02] MEDS: NICOTINE POLACRILEX 4 MG GUM BUC PRN ×5 (09:44→21:08)
[2018-05-02] MEDS: NICOTINE 14 MG/24 HOURS TOPICAL PATCH TD SCH (09:44)
[2018-05-02] MEDS: SERTRALINE HCL 50 MG TABLET (FP) PO SCH (09:44)
[2018-05-02] MEDS: risperiDONE 1 MG TABLET (FP) PO SCH (21:08)
[2018-05-02] MEDS: MELATONIN 5 MG TABLETS PO PRN (21:08)
[2018-05-02] MEDS: THIAMINE HCL 100 MG TABLET (FP) PO SCH (21:08)
[2018-05-03] MEDS: PRENATAL VITAMINS W/ FOLIC ACID TABLET (FP) PO SCH (09:46)
[2018-05-03] MEDS: SERTRALINE HCL 50 MG TABLET (FP) PO SCH (09:46)
[2018-05-03] MEDS: NICOTINE 14 MG/24 HOURS TOPICAL PATCH TD SCH (09:46)
[2018-05-03] MEDS: NICOTINE POLACRILEX 4 MG GUM BUC PRN ×5 (09:47→21:08)
[2018-05-03] MEDS: risperiDONE 1 MG TABLET (FP) PO SCH (21:07)
[2018-05-03] MEDS: THIAMINE HCL 100 MG TABLET (FP) PO SCH (21:07)
[2018-05-03] MEDS: MELATONIN 5 MG TABLETS PO PRN (21:07)
[2018-05-04] MEDS: NICOTINE 14 MG/24 HOURS TOPICAL PATCH TD SCH (09:42)
[2018-05-04] MEDS: PRENATAL VITAMINS W/ FOLIC ACID TABLET (FP) PO SCH (09:42)
[2018-05-04] MEDS: NICOTINE POLACRILEX 4 MG GUM BUC PRN ×4 (09:43→21:14)
[2018-05-04] MEDS: SERTRALINE HCL 50 MG TABLET (FP) PO SCH (09:43)
[2018-05-04] MEDS: THIAMINE HCL 100 MG TABLET (FP) PO SCH (21:13)
[2018-05-04] MEDS: MELATONIN 5 MG TABLETS PO PRN (21:13)
[2018-05-04] MEDS: risperiDONE 1 MG TABLET (FP) PO SCH (21:13)
[2018-05-05] MEDS: SERTRALINE HCL 50 MG TABLET (FP) PO SCH (09:41)
[2018-05-05] MEDS: NICOTINE POLACRILEX 4 MG GUM BUC PRN ×5 (09:41→21:08)
[2018-05-05] MEDS: NICOTINE 14 MG/24 HOURS TOPICAL PATCH TD SCH (09:41)
[2018-05-05] MEDS: PRENATAL VITAMINS W/ FOLIC ACID TABLET (FP) PO SCH (09:41)
[2018-05-05] MEDS: risperiDONE 1 MG TABLET (FP) PO SCH (21:08)
[2018-05-05] MEDS: THIAMINE HCL 100 MG TABLET (FP) PO SCH (21:08)
[2018-05-05] MEDS: MELATONIN 5 MG TABLETS PO PRN (21:08)
[2018-05-06] MEDS: PRENATAL VITAMINS W/ FOLIC ACID TABLET (FP) PO SCH (09:50)
[2018-05-06] MEDS: SERTRALINE HCL 50 MG TABLET (FP) PO SCH (09:50)
[2018-05-06] MEDS: NICOTINE 14 MG/24 HOURS TOPICAL PATCH TD SCH (09:50)
[2018-05-06] MEDS: NICOTINE POLACRILEX 4 MG GUM BUC PRN ×3 (09:51→17:23)
[2018-05-06] MEDS: IBUPROFEN 400 MG TABLET (FP) PO PRN (14:23)
[2018-05-06] MEDS: THIAMINE HCL 100 MG TABLET (FP) PO SCH (21:04)
[2018-05-06] MEDS: MELATONIN 5 MG TABLETS PO PRN (21:04)
[2018-05-06] MEDS: risperiDONE 1 MG TABLET (FP) PO SCH (21:04)
[2018-05-07] MEDS: SERTRALINE HCL 50 MG TABLET (FP) PO SCH (10:28)
[2018-05-07] MEDS: NICOTINE 14 MG/24 HOURS TOPICAL PATCH TD SCH (10:28)
[2018-05-07] MEDS: PRENATAL VITAMINS W/ FOLIC ACID TABLET (FP) PO SCH (10:28)
[2018-05-07] MEDS: NICOTINE POLACRILEX 4 MG GUM BUC PRN ×4 (10:29→21:14)
[2018-05-07] MEDS: MELATONIN 5 MG TABLETS PO PRN (21:14)
[2018-05-07] MEDS: risperiDONE 1 MG TABLET (FP) PO SCH (21:14)
[2018-05-07] MEDS: THIAMINE HCL 100 MG TABLET (FP) PO SCH (21:14)
[2018-05-08] MEDS: PRENATAL VITAMINS W/ FOLIC ACID TABLET (FP) PO SCH (09:58)
[2018-05-08] MEDS: SERTRALINE HCL 50 MG TABLET (FP) PO SCH (09:59)
[2018-05-08] MEDS: NICOTINE POLACRILEX 4 MG GUM BUC PRN ×5 (10:00→21:05)
[2018-05-08] MEDS: NICOTINE 14 MG/24 HOURS TOPICAL PATCH TD SCH (10:01)
[2018-05-08] MEDS: MELATONIN 5 MG TABLETS PO PRN (21:05)
[2018-05-08] MEDS: THIAMINE HCL 100 MG TABLET (FP) PO SCH (21:05)
[2018-05-08] MEDS: risperiDONE 1 MG TABLET (FP) PO SCH (21:05)
[2018-05-09] MEDS: NICOTINE 14 MG/24 HOURS TOPICAL PATCH TD SCH (09:53)
[2018-05-09] MEDS: PRENATAL VITAMINS W/ FOLIC ACID TABLET (FP) PO SCH (09:53)
[2018-05-09] MEDS: SERTRALINE HCL 50 MG TABLET (FP) PO SCH (09:53)
[2018-05-09] MEDS: NICOTINE POLACRILEX 4 MG GUM BUC PRN ×4 (09:53→17:31)
[2018-05-09] MEDS: THIAMINE HCL 100 MG TABLET (FP) PO SCH (21:10)
[2018-05-09] MEDS: MELATONIN 5 MG TABLETS PO PRN (21:10)
[2018-05-09] MEDS: risperiDONE 1 MG TABLET (FP) PO SCH (21:10)
[2018-05-10] MEDS: SERTRALINE HCL 50 MG TABLET (FP) PO SCH (09:54)
[2018-05-10] MEDS: NICOTINE 14 MG/24 HOURS TOPICAL PATCH TD SCH (09:54)
[2018-05-10] MEDS: PRENATAL VITAMINS W/ FOLIC ACID TABLET (FP) PO SCH (09:54)
[2018-05-10] MEDS: NICOTINE POLACRILEX 4 MG GUM BUC PRN ×5 (09:55→21:04)
[2018-05-10] MEDS: IBUPROFEN 400 MG TABLET (FP) PO PRN (14:18)
[2018-05-10] MEDS: risperiDONE 1 MG TABLET (FP) PO SCH (21:03)
[2018-05-10] MEDS: THIAMINE HCL 100 MG TABLET (FP) PO SCH (21:04)
[2018-05-10] MEDS: MELATONIN 5 MG TABLETS PO PRN (21:04)
[2018-05-11] MEDS: NICOTINE 14 MG/24 HOURS TOPICAL PATCH TD SCH (09:37)
[2018-05-11] MEDS: SERTRALINE HCL 50 MG TABLET (FP) PO SCH (09:37)
[2018-05-11] MEDS: PRENATAL VITAMINS W/ FOLIC ACID TABLET (FP) PO SCH (09:37)
[2018-05-11] MEDS: NICOTINE POLACRILEX 4 MG GUM BUC PRN ×5 (09:38→21:10)
[2018-05-11] MEDS: THIAMINE HCL 100 MG TABLET (FP) PO SCH (21:09)
[2018-05-11] MEDS: risperiDONE 1 MG TABLET (FP) PO SCH (21:09)
[2018-05-11] MEDS: MELATONIN 5 MG TABLETS PO PRN (21:09)
[2018-05-12] MEDS: NICOTINE POLACRILEX 4 MG GUM BUC PRN ×4 (09:48→21:10)
[2018-05-12] MEDS: PRENATAL VITAMINS W/ FOLIC ACID TABLET (FP) PO SCH (09:48)
[2018-05-12] MEDS: NICOTINE 14 MG/24 HOURS TOPICAL PATCH TD SCH (09:48)
[2018-05-12] MEDS: SERTRALINE HCL 50 MG TABLET (FP) PO SCH (09:48)
[2018-05-12] MEDS: THIAMINE HCL 100 MG TABLET (FP) PO SCH (21:10)
[2018-05-12] MEDS: MELATONIN 5 MG TABLETS PO PRN (21:10)
[2018-05-12] MEDS: risperiDONE 1 MG TABLET (FP) PO SCH (21:10)
[2018-05-13] MEDS: PRENATAL VITAMINS W/ FOLIC ACID TABLET (FP) PO SCH (09:56)
[2018-05-13] MEDS: SERTRALINE HCL 50 MG TABLET (FP) PO SCH (09:56)
[2018-05-13] MEDS: NICOTINE 14 MG/24 HOURS TOPICAL PATCH TD SCH (09:56)
[2018-05-13] MEDS: NICOTINE POLACRILEX 4 MG GUM BUC PRN ×4 (09:57→21:08)
[2018-05-13] MEDS: IBUPROFEN 400 MG TABLET (FP) PO PRN (12:27)
[2018-05-13] MEDS: THIAMINE HCL 100 MG TABLET (FP) PO SCH (21:08)
[2018-05-13] MEDS: risperiDONE 1 MG TABLET (FP) PO SCH (21:08)
[2018-05-13] MEDS: MELATONIN 5 MG TABLETS PO PRN (21:08)
[2018-05-14] MEDS: NICOTINE 14 MG/24 HOURS TOPICAL PATCH TD SCH (09:40)
[2018-05-14] MEDS: SERTRALINE HCL 50 MG TABLET (FP) PO SCH (09:40)
[2018-05-14] MEDS: PRENATAL VITAMINS W/ FOLIC ACID TABLET (FP) PO SCH (09:40)
[2018-05-14] MEDS: NICOTINE POLACRILEX 4 MG GUM BUC PRN ×4 (09:41→21:07)
[2018-05-14] MEDS: IBUPROFEN 400 MG TABLET (FP) PO PRN (09:41)
[2018-05-14] MEDS: MELATONIN 5 MG TABLETS PO PRN (21:06)
[2018-05-14] MEDS: risperiDONE 1 MG TABLET (FP) PO SCH (21:06)
[2018-05-14] MEDS: THIAMINE HCL 100 MG TABLET (FP) PO SCH (21:06)
[2018-05-15] MEDS: SERTRALINE HCL 50 MG TABLET (FP) PO SCH (09:47)
[2018-05-15] MEDS: PRENATAL VITAMINS W/ FOLIC ACID TABLET (FP) PO SCH (09:47)
[2018-05-15] MEDS: NICOTINE POLACRILEX 4 MG GUM BUC PRN ×5 (09:48→21:07)
[2018-05-15] MEDS: NICOTINE 14 MG/24 HOURS TOPICAL PATCH TD SCH (09:52)
[2018-05-15] MEDS: IBUPROFEN 400 MG TABLET (FP) PO PRN (12:21)
[2018-05-15] MEDS: risperiDONE 1 MG TABLET (FP) PO SCH (21:07)
[2018-05-15] MEDS: MELATONIN 5 MG TABLETS PO PRN (21:07)
[2018-05-15] MEDS: THIAMINE HCL 100 MG TABLET (FP) PO SCH (21:07)
[2018-05-16] MEDS: IBUPROFEN 400 MG TABLET (FP) PO PRN (10:01)
[2018-05-16] MEDS: PRENATAL VITAMINS W/ FOLIC ACID TABLET (FP) PO SCH (10:01)
[2018-05-16] MEDS: SERTRALINE HCL 50 MG TABLET (FP) PO SCH (10:01)
[2018-05-16] MEDS: NICOTINE POLACRILEX 4 MG GUM BUC PRN ×4 (10:02→21:10)
[2018-05-16] MEDS: NICOTINE 14 MG/24 HOURS TOPICAL PATCH TD SCH (10:02)
--- NOTE | 2018-05-16 13:56 | PN ---
Psychiatric Progress Note Vital Signs: Vital Signs Period Temp Pulse Resp BP Sys/Heart Pulse Ox Last 24 Hr 98.7 F 60 16-18 101/56 Date of Session: 05/16/18 Chief Complaint:: Discharge visit HPI: patient addressed cocaine,opioi dependence,pcp abuse comorbid with substance induced mood disorder. Current Medications: Active Medications Generic Name Dose Route Start Last Admin Trade Name Freq PRN Reason Stop Dose Admin Acetaminophen 650 mg 04/18/18 22:27 Tylenol - PO Q4H PRN FEVER Al Hydroxide/Mg Hydroxide 30 ml 04/18/18 22:27 Mylanta Oral Suspension - PO Q6H PRN DYSPEPSIA Eucalyptus/Menthol/Phenol/Sorbitol 1 each 04/18/18 22:27 Cepastat Lozenge - MM Q4H PRN SORE THROAT Guaifenesin 10 ml 04/18/18 22:27 Robitussin Dm - PO Q6H PRN COUGH Hydroxyzine Pamoate 50 mg 04/18/18 22:27 04/22/18 21:07 Vistaril - PO 50 mg Q4H PRN Administration AGITATION Ibuprofen 400 mg 04/18/18 22:27 05/16/18 10:01 Motrin - PO 400 mg Q6H PRN Administration Pain level 4-6 Loperamide HCl 4 mg 04/18/18 22:27 Imodium - PO Q6H PRN DIARRHEA Magnesium Citrate 300 ml 04/18/18 22:27 Citroma - PO Q48H PRN CONSTIPATION Magnesium Hydroxide 30 ml 04/18/18 22:27 Milk Of Magnesia - PO DAILY PRN CONSTIPATION Melatonin 5 mg 04/18/18 22:00 05/15/18 21:07 Melatonin PO 5 mg HS PRN Administration INSOMNIA Nicotine 14 mg 04/19/18 10:00 05/16/18 10:02 Nicoderm Patch - TD Not Given DAILY LARRY Nicotine Polacrilex 4 mg 04/26/18 15:26 05/16/18 12:15 Nicorette Gum - BUC 4 mg Q2H PRN Administration NICOTINE REPLACEMENT RX Multivit/Folic Acid/Iron 1 tab 04/19/18 10:00 05/16/18 10:01 Vitamins (Sjr) - PO 1 tab DAILY LARRY Administration Pseudoephedrine/Triprolidine 1 combo 04/18/18 22:27 Actifed - PO TID PRN NASAL CONGESTION Risperidone 1 mg 04/19/18 22:00 05/15/18 21:07 Risperdal - PO 1 mg HS LARRY Administration Sertraline HCl 100 mg 04/19/18 10:15 05/16/18 10:01 Zoloft - PO 100 mg DAILY LARRY Administration Thiamine HCl 100 mg 04/19/18 22:00 05/15/18 21:07 Vitamin B1 - PO 100 mg HS LARRY Administration Current Side Effect: No Lab tests ordered: No Lab tests reviewed: Yes Provider note:: patient will complete this program tomorrow .he has met his treamnt goals and will continue to address his issues on outpatient basis at [facility].he reports that current medications:zoloft 50 mg po dilay and risperidone 1 mg po hs help to cope with mood instability, anxiety,depression.scripts provided for 30 days supply. Supportive therapy provided focusing on relapse prevention. patient is stable for discharge tomorrow. Mental Status Exam - Mental Status Exam Alert and Oriented to: Time, Place, Person Cognitive Function: Grossly Intact Patient Appearance: Well Groomed Mood: Euthymic Affect: Mood Congruent Patient Behavior: Cooperative Speech Pattern: Clear Voice Loudness: Normal Thought Process: Goal Oriented Thought Disorder: Not Present Hallucinations: Denies Suicidal Ideation: Denies Homicidal Ideation: Denies Insight/Judgement: Fair Sleep: Fair Appetite: Good Muscle strength/Tone: Normal Gait/Station: Normal Psychiatric Treatment Plan - Problem List (1) Alcohol dependence Current Visit: Yes Qualifiers: Substance use status: uncomplicated Qualified Code(s): F10.20 - Alcohol dependence, uncomplicated (2) Cocaine dependence Current Visit: Yes Qualifiers: Substance use status: uncomplicated Qualified Code(s): F14.20 - Cocaine dependence, uncomplicated (3) Opioid dependence Current Visit: Yes (4) Nicotine dependence Current Visit: Yes Qualifiers: Nicotine product type: cigarettes (5) Substance induced mood disorder Current Visit: Yes (6) Nicotine dependence Current Visit: Yes Qualifiers: Nicotine product type: cigarettes Substance use status: uncomplicated Qualified Code(s): F17.210 - Nicotine dependence, cigarettes, uncomplicated (7) PCP abuse Current Visit: No
[2018-05-16] MEDS: risperiDONE 1 MG TABLET (FP) PO SCH (21:09)
[2018-05-16] MEDS: THIAMINE HCL 100 MG TABLET (FP) PO SCH (21:09)
[2018-05-16] MEDS: MELATONIN 5 MG TABLETS PO PRN (21:09)
[2018-05-17 06:26] VITALS: BP 105/62; PULSE 68; TEMP 97.8
[2018-05-17] MEDS: NICOTINE 14 MG/24 HOURS TOPICAL PATCH TD SCH (09:43)
[2018-05-17] MEDS: SERTRALINE HCL 50 MG TABLET (FP) PO SCH (09:44)
[2018-05-17] MEDS: IBUPROFEN 400 MG TABLET (FP) PO PRN (09:44)
[2018-05-17] MEDS: PRENATAL VITAMINS W/ FOLIC ACID TABLET (FP) PO SCH (09:44)
== END 2018-05-17 10:37 | disposition home or self-care (01) | DRG 772 ==
LOC: YASAS 16:05 → Y5N 21:41
PROVIDERS: ADMIT Psychiatry & Neurology Psychiatry; ATTEND Psychiatry & Neurology Psychiatry
PROC: HZ42ZZZ Group Counseling for Substance Abuse Treatment, Cognitive-Behavioral (ICD-10-PCS; principal; 2018-04-18)
DX: F11.20 Opioid dependence, uncomplicated (principal); F10.20 Alcohol dependence, uncomplicated; F14.20 Cocaine dependence, uncomplicated; F16.10 Hallucinogen abuse, uncomplicated; F17.210 Nicotine dependence, cigarettes, uncomplicated; F19.24 Other psychoactive substance dependence with psychoactive substance-induced mood disorder; F41.1 Generalized anxiety disorder; F32.9 Major depressive disorder, single episode, unspecified
CPT/HCPCS: 36415; 80053; 81003; 85027; 86593; 93005; 93010; J2794

== ENCOUNTER 2018-06-25 16:01 | Inpatient (IN) | payer OTHER ==
[2018-06-25 17:43] VITALS: BMI 21.2
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
[2018-06-25] MEDS ORDERED: MAGNESIUM HYDROX 2400MG/30ML ORAL SUSPENSION 30 ML CUP PO PRN (17:46)
[2018-06-25] MEDS ORDERED: P-EPHED 60MG/TRIPROLIDI 2.5MG TABLET PO PRN (17:46)
[2018-06-25] MEDS ORDERED: MAG HYDROX/AL HYDROX/SIMETH 30 ML UNIT-DOSE CUP PO PRN (17:46)
[2018-06-25] MEDS ORDERED: guaiFENesin/D-METHORPHAN HB 10 ML UNIT-DOSE CUPS PO PRN (17:46)
[2018-06-25] MEDS ORDERED: MENTHOL/PHENOL 1 EACH UD MM PRN (17:46)
[2018-06-25] MEDS ORDERED: MAGNESIUM CITRATE 300 ML BOTTLE PO PRN (17:46)
[2018-06-25] MEDS ORDERED: ACETAMINOPHEN 325 MG TABLET (FP) PO PRN (17:46)
[2018-06-25] MEDS: THIAMINE HCL 100 MG TABLET (FP) PO SCH (21:42)
[2018-06-25] MEDS: hydrOXYzine PAMOATE 25 MG CAPSULE (FP) PO PRN (21:43)
[2018-06-25] MEDS: MELATONIN 5 MG TABLETS PO PRN (21:43)
[2018-06-26 03:29] LABS: URINE APPEARANCE SLCLOUDY; URINE BILIRUBIN NEGATIVE (<2.0 mg/dL); URINE COLOR YELLOW; URINE GLUCOSE (UA) NEGATIVE (NEGATIVE); URINE KETONE NEGATIVE (NEGATIVE); URINE LEUK ESTERASE NEGATIVE (NEGATIVE); URINE NITRITE NEGATIVE (NEGATIVE); URINE PROTEIN NEGATIVE (NEGATIVE); URINE UROBILINOGEN NEGATIVE mg/dL (0.2-1.0)
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
[2018-06-26 09:44] LABS: HEMATOCRIT 41.2 % (35.4-49); HEMOGLOBIN 13.3 GM/dL (11.7-16.9); MCH 28.7 pg (25.7-33.7); MCHC 32.3 g/dl (32.0-35.9); MEAN CELL VOLUME 88.8 fl (80-96); MEAN PLT VOLUME 8.8 fl (7.5-11.1); PLATELET COUNT 234 K/MM3 (134-434); RBC 4.64 M/mm3 (4.00-5.60); RDW 14.3 % (11.9-15.9); WHITE BLOOD COUNT 5.5 K/mm3 (4.0-10.0)
[2018-06-26 10:13] LABS: ALBUMIN 3.9 g/dl (3.4-5.0); ALK PHOS 93 U/L (45-117); ANION GAP 10 MMOL/L (8-16); BILIRUBIN,TOTAL 0.7 mg/dL (0.2-1); BLOOD UREA NITROGEN 17 mg/dL (7-18); CALCIUM 8.7 mg/dL (8.5-10.1); CHLORIDE 107 mmol/L (98-107); CO2 25 mmol/L (21-32); CREATININE 0.9 mg/dL (0.55-1.3); GLUCOSE,RANDOM 89 mg/dL (74-106); POTASSIUM 4.4 mmol/L (3.5-5.1); SGOT/AST 198 U/L (15-37); SGPT/ALT 333 U/L (13-61); SODIUM 142 mmol/L (136-145)
[2018-06-26] MEDS: PRENATAL VITAMINS W/ FOLIC ACID TABLET (FP) PO SCH (11:17)
[2018-06-26] MEDS: SERTRALINE HCL 50 MG TABLET (FP) PO SCH (12:21)
[2018-06-26] MEDS: NICOTINE POLACRILEX 4 MG GUM BC PRN ×4 (12:22→21:28)
--- NOTE | 2018-06-26 14:10 | PN ---
[facility] Progress Note Note: Laboratory Tests 06/25/18 06/26/18 06/26/18 21:40 07:13 07:13 WBC 5.5 RBC 4.64 Hgb 13.3 Hct 41.2 MCV 88.8 MCH 28.7 MCHC 32.3 RDW 14.3 Plt Count 234 D MPV 8.8 Sodium 142 Potassium 4.4 Chloride 107 Carbon Dioxide 25 Anion Gap 10 BUN 17 Creatinine 0.9 Creat Clearance w eGFR > 60 Random Glucose 89 Calcium 8.7 Total Bilirubin 0.7 AST 198 H ALT 333 H Alkaline Phosphatase 93 Total Protein 7.0 Albumin 3.9 Urine Color Yellow Urine Appearance Slcloudy Urine pH 7.0 Ur Specific [place] 1.013 Urine Protein Negative Urine Glucose (UA) Negative Urine Ketones Negative Urine Blood Negative Urine Nitrite Negative Urine Bilirubin Negative Urine Urobilinogen Negative Ur Leukocyte Esterase Negative RPR Titer HIV 1&2 Antibody Screen HIV P24 Antigen 06/26/18 06/26/18 07:13 07:13 WBC RBC Hgb Hct MCV MCH MCHC RDW Plt Count MPV Sodium Potassium Chloride Carbon Dioxide Anion Gap BUN Creatinine Creat Clearance w eGFR Random Glucose Calcium Total Bilirubin AST ALT Alkaline Phosphatase Total Protein Albumin Urine Color Urine Appearance Urine pH Ur Specific [place] Urine Protein Urine Glucose (UA) Urine Ketones Urine Blood Urine Nitrite Urine Bilirubin Urine Urobilinogen Ur Leukocyte Esterase RPR Titer Nonreactive HIV 1&2 Antibody Screen Negative HIV P24 Antigen Negative INCREASED ALT AND AST NOTED. PLAN:REPEAT AST AND ALT;INR IN AM
[2018-06-26] MEDS: MELATONIN 5 MG TABLETS PO PRN (21:28)
[2018-06-26] MEDS: risperiDONE 1 MG TABLET (FP) PO SCH (21:28)
[2018-06-26] MEDS: THIAMINE HCL 100 MG TABLET (FP) PO SCH (21:28)
[2018-06-27] MEDS: NICOTINE POLACRILEX 4 MG GUM BC PRN ×4 (10:06→21:36)
[2018-06-27] MEDS: PRENATAL VITAMINS W/ FOLIC ACID TABLET (FP) PO SCH (10:06)
[2018-06-27] MEDS: SERTRALINE HCL 50 MG TABLET (FP) PO SCH (10:06)
[2018-06-27 10:22] LABS: SGOT/AST 172 U/L (15-37); SGPT/ALT 318 U/L (13-61)
[2018-06-27 14:43] LABS: INR 1.12 (0.83-1.09); PROTHROMBIN TIME (PATIENT) 13.2 SEC (9.7-13.0)
[2018-06-27] MEDS: MELATONIN 5 MG TABLETS PO PRN (21:36)
[2018-06-27] MEDS: risperiDONE 1 MG TABLET (FP) PO SCH (21:36)
[2018-06-27] MEDS: THIAMINE HCL 100 MG TABLET (FP) PO SCH (21:36)
[2018-06-28] MEDS: PRENATAL VITAMINS W/ FOLIC ACID TABLET (FP) PO SCH (10:42)
[2018-06-28] MEDS: SERTRALINE HCL 50 MG TABLET (FP) PO SCH (10:42)
[2018-06-28] MEDS: NICOTINE POLACRILEX 4 MG GUM BC PRN ×5 (10:43→21:36)
[2018-06-28] MEDS: risperiDONE 1 MG TABLET (FP) PO SCH (21:35)
[2018-06-28] MEDS: MELATONIN 5 MG TABLETS PO PRN (21:35)
[2018-06-28] MEDS: THIAMINE HCL 100 MG TABLET (FP) PO SCH (21:36)
[2018-06-29] MEDS: PRENATAL VITAMINS W/ FOLIC ACID TABLET (FP) PO SCH (10:26)
[2018-06-29] MEDS: SERTRALINE HCL 50 MG TABLET (FP) PO SCH (10:26)
[2018-06-29] MEDS: NICOTINE POLACRILEX 4 MG GUM BC PRN ×4 (10:28→21:39)
[2018-06-29] MEDS: risperiDONE 1 MG TABLET (FP) PO SCH (21:39)
[2018-06-29] MEDS: THIAMINE HCL 100 MG TABLET (FP) PO SCH (21:39)
[2018-06-30] MEDS: PRENATAL VITAMINS W/ FOLIC ACID TABLET (FP) PO SCH (09:53)
[2018-06-30] MEDS: SERTRALINE HCL 50 MG TABLET (FP) PO SCH (09:54)
[2018-06-30] MEDS: NICOTINE POLACRILEX 4 MG GUM BC PRN ×3 (09:55→15:41)
[2018-06-30] MEDS: risperiDONE 1 MG TABLET (FP) PO SCH (21:34)
[2018-06-30] MEDS: THIAMINE HCL 100 MG TABLET (FP) PO SCH (21:34)
[2018-07-01] MEDS: SERTRALINE HCL 50 MG TABLET (FP) PO SCH (10:03)
[2018-07-01] MEDS: NICOTINE POLACRILEX 4 MG GUM BC PRN ×5 (10:04→21:39)
[2018-07-01] MEDS: PRENATAL VITAMINS W/ FOLIC ACID TABLET (FP) PO SCH (10:04)
[2018-07-01] MEDS: THIAMINE HCL 100 MG TABLET (FP) PO SCH (21:38)
[2018-07-01] MEDS: risperiDONE 1 MG TABLET (FP) PO SCH (21:38)
[2018-07-02] MEDS: PRENATAL VITAMINS W/ FOLIC ACID TABLET (FP) PO SCH (11:18)
[2018-07-02] MEDS: SERTRALINE HCL 50 MG TABLET (FP) PO SCH (11:18)
[2018-07-02] MEDS: NICOTINE POLACRILEX 4 MG GUM BC PRN ×3 (11:21→17:23)
[2018-07-02] MEDS: MELATONIN 5 MG TABLETS PO PRN (21:41)
[2018-07-02] MEDS: IBUPROFEN 400 MG TABLET (FP) PO PRN (21:42)
[2018-07-02] MEDS: risperiDONE 1 MG TABLET (FP) PO SCH (21:42)
[2018-07-02] MEDS: THIAMINE HCL 100 MG TABLET (FP) PO SCH (22:44)
[2018-07-03] MEDS: SERTRALINE HCL 50 MG TABLET (FP) PO SCH (11:00)
[2018-07-03] MEDS: PRENATAL VITAMINS W/ FOLIC ACID TABLET (FP) PO SCH (11:00)
[2018-07-03] MEDS: NICOTINE POLACRILEX 4 MG GUM BC PRN ×4 (11:01→17:38)
[2018-07-03] MEDS: MELATONIN 5 MG TABLETS PO PRN (21:48)
[2018-07-03] MEDS: THIAMINE HCL 100 MG TABLET (FP) PO SCH (21:48)
[2018-07-03] MEDS: risperiDONE 1 MG TABLET (FP) PO SCH (21:49)
[2018-07-04] MEDS: SERTRALINE HCL 50 MG TABLET (FP) PO SCH (10:24)
[2018-07-04] MEDS: PRENATAL VITAMINS W/ FOLIC ACID TABLET (FP) PO SCH (10:24)
[2018-07-04] MEDS: NICOTINE POLACRILEX 4 MG GUM BC PRN ×3 (10:25→21:39)
[2018-07-04] MEDS: IBUPROFEN 400 MG TABLET (FP) PO PRN (17:31)
[2018-07-04] MEDS: MELATONIN 5 MG TABLETS PO PRN (21:38)
[2018-07-04] MEDS: THIAMINE HCL 100 MG TABLET (FP) PO SCH (21:39)
[2018-07-04] MEDS: risperiDONE 1 MG TABLET (FP) PO SCH (21:39)
[2018-07-05] MEDS: PRENATAL VITAMINS W/ FOLIC ACID TABLET (FP) PO SCH (10:11)
[2018-07-05] MEDS: NICOTINE POLACRILEX 4 MG GUM BC PRN ×5 (10:12→21:47)
[2018-07-05] MEDS: SERTRALINE HCL 50 MG TABLET (FP) PO SCH (10:12)
[2018-07-05] MEDS: hydrOXYzine PAMOATE 25 MG CAPSULE (FP) PO PRN ×2 (12:10→21:46)
[2018-07-05] MEDS: THIAMINE HCL 100 MG TABLET (FP) PO SCH (21:46)
[2018-07-05] MEDS: risperiDONE 1 MG TABLET (FP) PO SCH (21:46)
[2018-07-06] MEDS: SERTRALINE HCL 50 MG TABLET (FP) PO SCH (10:13)
[2018-07-06] MEDS: PRENATAL VITAMINS W/ FOLIC ACID TABLET (FP) PO SCH (10:13)
[2018-07-06] MEDS: NICOTINE POLACRILEX 4 MG GUM BC PRN ×4 (10:14→17:29)
[2018-07-06] MEDS: MELATONIN 5 MG TABLETS PO PRN (21:35)
[2018-07-06] MEDS: hydrOXYzine PAMOATE 25 MG CAPSULE (FP) PO PRN (21:35)
[2018-07-06] MEDS: risperiDONE 1 MG TABLET (FP) PO SCH (21:35)
[2018-07-06] MEDS: THIAMINE HCL 100 MG TABLET (FP) PO SCH (21:35)
[2018-07-07] MEDS: NICOTINE POLACRILEX 4 MG GUM BC PRN ×5 (10:10→21:27)
[2018-07-07] MEDS: PRENATAL VITAMINS W/ FOLIC ACID TABLET (FP) PO SCH (10:10)
[2018-07-07] MEDS: SERTRALINE HCL 50 MG TABLET (FP) PO SCH (10:10)
[2018-07-07] MEDS: MELATONIN 5 MG TABLETS PO PRN (21:26)
[2018-07-07] MEDS: risperiDONE 1 MG TABLET (FP) PO SCH (21:26)
[2018-07-07] MEDS: THIAMINE HCL 100 MG TABLET (FP) PO SCH (21:26)
[2018-07-08 06:45] VITALS: TEMP 97.7
[2018-07-08] MEDS: SERTRALINE HCL 50 MG TABLET (FP) PO SCH (09:51)
[2018-07-08] MEDS: PRENATAL VITAMINS W/ FOLIC ACID TABLET (FP) PO SCH (09:51)
[2018-07-08] MEDS: NICOTINE POLACRILEX 4 MG GUM BC PRN ×4 (09:51→21:29)
[2018-07-08] MEDS: MELATONIN 5 MG TABLETS PO PRN (21:29)
[2018-07-08] MEDS: THIAMINE HCL 100 MG TABLET (FP) PO SCH (21:29)
[2018-07-08] MEDS: risperiDONE 1 MG TABLET (FP) PO SCH (21:29)
[2018-07-09 06:54] VITALS: BP 109/59; PULSE 69
[2018-07-09] MEDS: PRENATAL VITAMINS W/ FOLIC ACID TABLET (FP) PO SCH (10:25)
[2018-07-09] MEDS: SERTRALINE HCL 50 MG TABLET (FP) PO SCH (10:25)
[2018-07-09] MEDS: NICOTINE POLACRILEX 4 MG GUM BC PRN ×2 (10:26→12:32)
--- NOTE | 2018-07-09 15:04 | PN ---
Psychiatric Progress Note Vital Signs: Vital Signs Period Temp Pulse Resp BP Sys/Heart Pulse Ox Last 24 Hr 97.7 F 69 18-18 109/59 Date of Session: 07/09/18 Chief Complaint:: "Discharge" Current Medications: Active Medications Generic Name Dose Route Start Last Admin Trade Name Freq PRN Reason Stop Dose Admin Acetaminophen 650 mg 06/25/18 17:46 Tylenol - PO Q4H PRN FEVER Al Hydroxide/Mg Hydroxide 30 ml 06/25/18 17:46 Mylanta Oral Suspension - PO Q6H PRN DYSPEPSIA Eucalyptus/Menthol/Phenol/Sorbitol 1 each 06/25/18 17:46 Cepastat Lozenge - MM Q4H PRN SORE THROAT Guaifenesin 10 ml 06/25/18 17:46 Robitussin Dm - PO Q6H PRN COUGH Hydroxyzine Pamoate 25 mg 06/25/18 17:46 07/06/18 21:35 Vistaril - PO 25 mg Q4H PRN Administration AGITATION Ibuprofen 400 mg 06/25/18 17:46 07/04/18 17:31 Motrin - PO 400 mg Q6H PRN Administration Pain level 4-6 Magnesium Citrate 300 ml 06/25/18 17:46 Citroma - PO Q48H PRN CONSTIPATION Magnesium Hydroxide 30 ml 06/25/18 17:46 Milk Of Magnesia - PO DAILY PRN CONSTIPATION Melatonin 5 mg 06/25/18 22:00 07/08/18 21:29 Melatonin PO 5 mg HS PRN Administration INSOMNIA Nicotine Polacrilex 4 mg 06/25/18 17:46 07/09/18 12:32 Nicorette Gum - BC 4 mg Q2H PRN Administration NICOTINE REPLACEMENT RX Multivit/Folic Acid/Iron 1 tab 06/26/18 10:00 07/09/18 10:25 Vitamins (Sjr) - PO 1 tab DAILY LARRY Administration Pseudoephedrine/Triprolidine 1 combo 06/25/18 17:46 Actifed - PO TID PRN NASAL CONGESTION Risperidone 1 mg 06/26/18 22:00 07/08/18 21:29 Risperdal - PO 1 mg HS LARRY Administration Sertraline HCl 150 mg 06/26/18 12:15 07/09/18 10:25 Zoloft - PO 150 mg DAILY LARRY Administration Thiamine HCl 100 mg 06/25/18 22:00 07/08/18 21:29 Vitamin B1 - PO 100 mg HS LARRY Administration Medication(s) Change(s): No. Provider note:: Patient able to complete rehabilitation program on 07/09/18. Patient has met his treatment goals and will continue to address his issues at the [facility]. He states his stay in rehab was productive and is content with the information he learned. A 30 day prescription of risperdal 1mg qhs + Zoloft 150mg daily was electronically sent [place] [address]. Patient is stable for discharge on 07/09/18. Total face to face time:: 35 Mental Status Exam - Mental Status Exam Alert and Oriented to: Time, Place, Person Cognitive Function: Good Patient Appearance: Well Groomed Mood: Hopeful Affect: Appropriate Patient Behavior: Appropriate, Cooperative Speech Pattern: Clear, Appropriate Voice Loudness: Normal Thought Process: Intact, Goal Oriented Thought Disorder: Not Present Hallucinations: Denies Suicidal Ideation: Denies Homicidal Ideation: Denies Insight/Judgement: Good Sleep: Well Appetite: Good Muscle strength/Tone: Normal Gait/Station: Normal Psychiatric Treatment Plan - Problem List (1) Cannabis dependence Current Visit: Yes (2) Cocaine dependence Current Visit: Yes (3) Anxiety disorder Current Visit: Yes (4) MDD (major depressive disorder), recurrent episode, moderate Current Visit: Yes (5) PTSD (post-traumatic stress disorder) Current Visit: Yes
== END 2018-07-09 15:34 | disposition home or self-care (01) | DRG 772 ==
LOC: YASAS 16:01 → Y5N 17:36
PROVIDERS: ADMIT Psychiatry & Neurology Psychiatry; ATTEND Psychiatry & Neurology Psychiatry
PROC: HZ42ZZZ Group Counseling for Substance Abuse Treatment, Cognitive-Behavioral (ICD-10-PCS; principal; 2018-06-25)
DX: F11.20 Opioid dependence, uncomplicated (principal); F14.20 Cocaine dependence, uncomplicated; F12.20 Cannabis dependence, uncomplicated; F16.10 Hallucinogen abuse, uncomplicated; F17.210 Nicotine dependence, cigarettes, uncomplicated; F33.1 Major depressive disorder, recurrent, moderate; F43.10 Post-traumatic stress disorder, unspecified; F41.1 Generalized anxiety disorder; F41.9 Anxiety disorder, unspecified
CPT/HCPCS: 36415; 80053; 81003; 84450; 84460; 85027; 85610; 86593; 87389; J2794

== ENCOUNTER 2019-04-26 12:33 | Inpatient (IN) | payer OTHER ==
[2019-04-26 13:17] VITALS: BMI 21.3
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
[2019-04-26] MEDS ORDERED: ACETAMINOPHEN 325 MG TABLET (FP) PO PRN ×2 (15:14)
[2019-04-26] MEDS ORDERED: MAGNESIUM CITRATE 300 ML BOTTLE PO PRN (15:14)
[2019-04-26] MEDS ORDERED: BISMUTH SUBSALICYLATE 262 MG/15 ML BTL PO PRN (15:14)
[2019-04-26] MEDS ORDERED: MELATONIN 5 MG TABLETS PO PRN (15:14)
[2019-04-26] MEDS ORDERED: MAG HYDROX/AL HYDROX/SIMETH 30 ML UNIT-DOSE CUP PO PRN (15:14)
[2019-04-26] MEDS ORDERED: MENTHOL/PHENOL 1 EACH UD MM PRN (15:14)
[2019-04-26] MEDS ORDERED: IBUPROFEN 400 MG TABLET (FP) PO PRN (15:14)
[2019-04-26] MEDS ORDERED: hydrOXYzine PAMOATE 25 MG CAPSULE (FP) PO PRN (15:14)
[2019-04-26] MEDS ORDERED: MAGNESIUM HYDROX 2400MG/30ML ORAL SUSPENSION 30 ML CUP PO PRN (15:14)
[2019-04-26] MEDS ORDERED: chlordiazePOXIDE HCL 10 MG CAPSULE PO PRN (15:17)
[2019-04-26] MEDS ORDERED: chlordiazePOXIDE HCL 25 MG CAPSULE PO ONE (15:50)
[2019-04-26] MEDS: NICOTINE POLACRILEX 2 MG GUM BUC PRN (16:43)
[2019-04-26] MEDS: BACITRACIN/POLYMYXIN B SULFATE 15 GM TUBE TP SCH (22:18)
[2019-04-26] MEDS: THIAMINE HCL 100 MG TABLET (FP) PO SCH (22:18)
[2019-04-26] MEDS: chlordiazePOXIDE HCL 25 MG CAPSULE PO SCH (22:18)
[2019-04-27] MEDS: chlordiazePOXIDE HCL 25 MG CAPSULE PO SCH ×3 (05:53→20:07)
[2019-04-27] MEDS: NICOTINE POLACRILEX 2 MG GUM BUC PRN ×4 (05:53→14:29)
[2019-04-27] MEDS: BACITRACIN/POLYMYXIN B SULFATE 15 GM TUBE TP SCH ×2 (10:13→22:04)
[2019-04-27] MEDS: PRENATAL VITAMINS W/ FOLIC ACID TABLET (FP) PO SCH (10:13)
[2019-04-27] MEDS: METHOCARBAMOL 500 MG TABLET PO PRN (10:14)
[2019-04-27 12:09] LABS: HEMOGLOBIN 13.2 GM/dL (11.7-16.9); MCH 30.5 pg (25.7-33.7); MCHC 33.9 g/dl (32.0-35.9); MEAN PLT VOLUME 8.7 fl (7.5-11.1); PLATELET COUNT 243 K/MM3 (134-434); RBC 4.34 M/mm3 (4.00-5.60); RDW 13.4 % (11.9-15.9); WHITE BLOOD COUNT 5.8 K/mm3 (4.0-10.0)
[2019-04-27 12:13] LABS: ALBUMIN 3.6 g/dl (3.4-5.0); BILIRUBIN,TOTAL 0.3 mg/dL (0.2-1); CALCIUM 8.9 mg/dL (8.5-10.1); CREATININE 0.9 mg/dL (0.55-1.3); POTASSIUM 4.1 mmol/L (3.5-5.1); TOT PROT 6.7 g/dl (6.4-8.2)
--- NOTE | 2019-04-27 12:31 | PN ---
S CIWA - CIWA Score Nausea/Vomitin-No Nausea/No Vomiting Muscle Tremors: 2 Anxiety: 3 Agitation: 0-Normal Activity Paroxysmal Sweats: 3 Orientation: 0-Oriented Tacttile Disturbances: 0-None Auditory Disturbances: 0-None Visual Disturbances: 0-None Headache: 2-Mild CIWA-Ar Total Score: 10 S Progress Note (SOAP) Subjective: c/o interrupted sleep, muscle aches, shakes, and headache. Objective: 04/27/19 12:30 Vital Signs 04/27/19 04/27/19 07:20 09:24 Temperature 97.7 F 97.7 F Pulse Rate 49 L 56 L Respiratory 16 16 Rate Blood Pressure 107/57 L 102/50 L Lab Results WBC 5.8 K/mm3 (4.0-10.0) 04/27/19 07:50 RBC 4.34 M/mm3 (4.00-5.60) 04/27/19 07:50 Hgb 13.2 GM/dL (11.7-16.9) 04/27/19 07:50 Hct 39.0 % (35.4-49) 04/27/19 07:50 MCV 90.0 fl (80-96) 04/27/19 07:50 MCHC 33.9 g/dl (32.0-35.9) 04/27/19 07:50 RDW 13.4 % (11.9-15.9) 04/27/19 07:50 Plt Count 243 K/MM3 (134-434) 04/27/19 07:50 Sodium 140 mmol/L (136-145) 04/27/19 07:50 Potassium 4.1 mmol/L (3.5-5.1) 04/27/19 07:50 Chloride 106 mmol/L (98-107) 04/27/19 07:50 Carbon Dioxide 28 mmol/L (21-32) 04/27/19 07:50 Anion Gap 6 MMOL/L (8-16) L 04/27/19 07:50 BUN 17.0 mg/dL (7-18) 04/27/19 07:50 Creatinine 0.9 mg/dL (0.55-1.3) 04/27/19 07:50 Random Glucose 83 mg/dL (74-106) 04/27/19 07:50 Calcium 8.9 mg/dL (8.5-10.1) 04/27/19 07:50 Labs noted. Assessment: 04/27/19 12:30 AOX3, in no acute respiratory distress. Full ROM, ambulating in the unit. Withdrawal symptoms. Plan: continue detox.
--- NOTE | 2019-04-27 14:04 | CONSULT ---
[facility] Psychiatric Consult - Data Date of interview: 04/27/19 Admission source: [facility] Identifying data: Revisit to [facility] for this 23 y/o male currently undergoing detoxification (alcohol, heroin, cocaine, cannabis, methamphetamine) . Seen on [address]. Patient is single without dependents, domiciled, unemployed and supported on SSI benefits. Substance Abuse History: Discussed with the patient. Details correlate with current [facility] report as follows : Smoking history: Current every day smoker. Have you smoked in the past 12 months: Yes. Aproximately how many cigarettes per day: 20. Cigars Per Day: 0. Hx Chewing Tobacco Use: No. Initiated information on smoking cessation: No. - Substances abused. Heroin. Substance route: Inhalation. Frequency: No use in 30 days. Amount used: 1 bag. Age of first use: 19. Date of last use: 04/13/19. PCP. Substance route: Smoking. Frequency: 1-2 times per week. Amount used: ten dollars. Age of first use: 19. Date of last use: 04/13/19. Marijuana/Hashish. Substance route: Smoking. Frequency: Daily. Amount used: 1 to 2 gram. Age of first use: 11. Date of last use: 03/28/19. Ectasy. Substance route: Oral. Frequency: 3-6 times per week. Amount used: 6 tablet total. Age of first use : 14. Date of last use: 03/28/19. Methamphetamine. Substance route: Oral. Frequency: 3-6 times per week. Amount used: 5 pills. Age of first use: 14. Date of last use: 03/28/19. Benzodiazepine (Klonopin). Substance route: Oral. Frequency: Daily. Amount used: 2 to 5 mg. Age of first use: 14. Date of last use: 04/13/19. Crack. Substance route: Smoking. Frequency: Daily. Amount used: 20 to 150 dollars. Age of first use: 19. Date of last use: . Alcohol. Substance route: Oral. Frequency: Daily. Amount used: 6 to 25 ounces of beer/ 1pint of vodka. Age of first use: 11. Date of last use: 04/26/19 Medical History: Hepatitis C (untreated). Psychiatric History: Early onset on psychiatric disturbances (age 11-12). First psychiatric treatment was at [facility] for the management of an eating disorder. It appears that, at the time, the patient's nutritional status became compromised because of decreased food intake due to irrational fear of choking.Mr Rivas was treated, at the time, with risperdal and luvox. History of multiple psychiatric hospitalizations ([facility], [facility]-). Diagnosed with Generalized Anxiety Disorder, MDD, PTSD. Patient reports no current affiliation with psychiatric OPD care providers. He is known to [facility] ([facility]) and most recently to [facility] ([facility]) in [facility]. He used to be on a regimen of risperdal 1 mg/hs + zoloft 100 mg/day. Non-adherent to OPD care + medications for months. Patient denies history of suicide attempts. Physical/Sexual Abuse/Trauma History: Patient denies. Additional Comment: Urine drug screen results: THC-Marijuana, ABIEL-Cocaine, MOP- Opiates. Noted. Mental Status Exam - Mental Status Exam Alert and Oriented to: Time, Place, Person Cognitive Function: Grossly Intact Patient Appearance: Unkempt (thin habitus.), Disheveled Mood: Withdrawn Affect: Appropriate, Mood Congruent, Normal Range Patient Behavior: Fatigued, Cooperative (marginally cooperative) Speech Pattern: Clear Voice Loudness: Normal Thought Process: Goal Oriented Thought Disorder: Not Present Hallucinations: Denies Suicidal Ideation: Denies Homicidal Ideation: Denies Insight/Judgement: Poor Sleep: Well Appetite: Good Gait/Station: Normal Psychiatric Findings - Problem List ([place] 1, 2,3) (1) Opioid dependence with withdrawal Current Visit: Yes Status: Acute (2) Alcohol dependence Current Visit: Yes Status: Chronic Qualifiers: Substance use status: uncomplicated Qualified Code(s): F10.20 - Alcohol dependence, uncomplicated (3) Nicotine dependence Current Visit: Yes Status: Chronic Qualifiers: Nicotine product type: cigarettes (4) Anxiolytic dependence Current Visit: Yes Status: Chronic (5) Cannabis abuse Current Visit: Yes Status: Chronic (6) Cocaine dependence Current Visit: Yes Status: Chronic Qualifiers: Substance use status: uncomplicated Qualified Code(s): F14.20 - Cocaine dependence, uncomplicated (7) Substance induced mood disorder Current Visit: Yes Status: Chronic (8) History of anxiety disorder Current Visit: Yes Status: Chronic (9) History of posttraumatic stress disorder (PTSD) Current Visit: Yes Status: Chronic (10) Non-compliance Current Visit: Yes Status: Chronic - Initial Treatment Plan Initial Treatment Plan: Psychoeducation provided (patient not receptive to teaching). Sleep hygiene. Detoxification. AA/NA meetings. Patient declines to consider any psychotropic formulations other than his current detoxification regimen. Observation.
[2019-04-27] MEDS ORDERED: HYDROCORTISONE 1% TOPICAL CREAM 30 GM TUBE TP PRN (14:41)
--- NOTE | 2019-04-27 15:14 | PN ---
[facility] Progress Note Note: Pt c/o right forearm rash/itching x2days. Noted multiple rash to right forearm. Hydrocortisone cream 1% bid ordered.
[2019-04-27] MEDS: THIAMINE HCL 100 MG TABLET (FP) PO SCH (22:12)
[2019-04-28] MEDS: chlordiazePOXIDE 5 MG CAPSULE PO SCH ×2 (05:36→13:01)
[2019-04-28] MEDS: METHOCARBAMOL 500 MG TABLET PO PRN (05:37)
[2019-04-28] MEDS: NICOTINE POLACRILEX 2 MG GUM BUC PRN ×3 (05:37→13:04)
[2019-04-28] MEDS: PRENATAL VITAMINS W/ FOLIC ACID TABLET (FP) PO SCH (09:42)
[2019-04-28] MEDS: BACITRACIN/POLYMYXIN B SULFATE 15 GM TUBE TP SCH (09:43)
--- NOTE | 2019-04-28 12:17 | PN ---
S CIWA - CIWA Score Nausea/Vomitin-Mild Nausea/No Vomiting Muscle Tremors: 2 Anxiety: 1-Mildly Anxious Agitation: 1-Slight > Activity Paroxysmal Sweats: 2 Orientation: 0-Oriented Tacttile Disturbances: 0-None Auditory Disturbances: 0-None Visual Disturbances: 0-None Headache: 0-None Present CIWA-Ar Total Score: 7 [facility] Progress Note (SOAP) Subjective: Patient c/o chills, mild nausea-no vomiting and shakes. Objective: 04/28/19 12:15 Laboratory Tests 04/27/19 04/27/19 04/27/19 07:50 07:50 07:50 WBC 5.8 RBC 4.34 Hgb 13.2 Hct 39.0 MCV 90.0 MCH 30.5 MCHC 33.9 RDW 13.4 Plt Count 243 MPV 8.7 Sodium 140 Potassium 4.1 Chloride 106 Carbon Dioxide 28 Anion Gap 6 L BUN 17.0 Creatinine 0.9 Est GFR (CKD-EPI)AfAm 137.10 Est GFR (CKD-EPI)NonAf 118.29 Random Glucose 83 Calcium 8.9 Total Bilirubin 0.3 AST 108 H ALT 109 H Alkaline Phosphatase 62 Total Protein 6.7 Albumin 3.6 RPR Titer Nonreactive Vital Signs Temperature 97.3 F L 04/28/19 09:52 Pulse Rate 95 H 04/28/19 09:52 Respiratory Rate 18 04/28/19 09:52 Blood Pressure 120/66 04/28/19 09:52 O2 Sat by Pulse Oximetry (%) PE alert and oriented x 3 skin warm and dry pupils mildly dilated, eoms intact bl neck supple, no jvd ext full rom, mild tremors amb ad jesu anxious Assessment: 04/28/19 12:16 Alcohol withdrawal sx elevated lfts Plan: continue detox encourage fluids repeat cmp in am
[2019-04-28 13:41] VITALS: BP 129/60; PULSE 85; TEMP 98.2
--- NOTE | 2019-04-28 14:01 | DS ---
[facility] Detox Discharge Summary Admission Date: 04/26/19 Discharge Date: 04/28/19 - History Present History: Alcohol Dependence - Physical Exam Results Vital Signs: Vital Signs Temperature 98.2 F 04/28/19 13:40 Pulse Rate 85 04/28/19 13:40 Respiratory Rate 17 04/28/19 13:40 Blood Pressure 129/60 04/28/19 13:40 O2 Sat by Pulse Oximetry (%) - Medication Discharge Medications: Ambulatory Orders Sertraline HCl [Zoloft] 150 mg PO AM 06/25/18 - AMA Did Patient Leave Against Medical Advice: Yes
[2019-04-29] MEDS ORDERED: chlordiazePOXIDE HCL 10 MG CAPSULE PO PRN
[2019-04-29] MEDS ORDERED: chlordiazePOXIDE HCL 10 MG CAPSULE PO SCH (05:00)
[2019-04-30] MEDS ORDERED: chlordiazePOXIDE HCL 10 MG CAPSULE PO ONE (05:00)
== END 2019-04-28 14:08 | disposition left against medical advice (07) | DRG 770 ==
LOC: YASAS 12:33 → Y6N 15:31
PROVIDERS: ADMIT Surgery; ATTEND Surgery
PROC: HZ2ZZZZ Detoxification Services for Substance Abuse Treatment (ICD-10-PCS; principal; 2019-04-26)
DX: F11.23 Opioid dependence with withdrawal (principal); F10.230 Alcohol dependence with withdrawal, uncomplicated; F13.20 Sedative, hypnotic or anxiolytic dependence, uncomplicated; F14.20 Cocaine dependence, uncomplicated; F15.10 Other stimulant abuse, uncomplicated; F12.10 Cannabis abuse, uncomplicated; F17.210 Nicotine dependence, cigarettes, uncomplicated; F19.24 Other psychoactive substance dependence with psychoactive substance-induced mood disorder; F41.9 Anxiety disorder, unspecified; F43.10 Post-traumatic stress disorder, unspecified; F32.9 Major depressive disorder, single episode, unspecified; R21 Rash and other nonspecific skin eruption; R94.5 Abnormal results of liver function studies; Z91.19 Patient's noncompliance with other medical treatment and regimen
CPT/HCPCS: 36415; 80053; 85027; 86593

== ENCOUNTER 2021-05-10 20:31 | Inpatient (IN) | payer OTHER ==
[2021-05-10] MEDS ORDERED: MAGNESIUM HYDROX 2400MG/30ML ORAL SUSPENSION 30 ML CUP PO PRN (23:09)
[2021-05-10] MEDS ORDERED: MAGNESIUM CITRATE 300 ML BOTTLE PO PRN (23:09)
[2021-05-10] MEDS ORDERED: BISMUTH SUBSALICYLATE 524 MG/30 ML PO PRN (23:09)
[2021-05-10] MEDS ORDERED: MAG HYDROX/AL HYDROX/SIMETH 30 ML UNIT-DOSE CUP PO PRN (23:09)
[2021-05-10] MEDS ORDERED: IBUPROFEN 400 MG TABLET (FP) PO PRN (23:09)
[2021-05-10] MEDS ORDERED: ONDANSETRON *ODT* 4 MG TABLET SL PRN (23:09)
[2021-05-10] MEDS ORDERED: METHOCARBAMOL 500 MG TABLET PO PRN (23:09)
[2021-05-10] MEDS ORDERED: ACETAMINOPHEN 325 MG TABLET (FP) PO PRN ×2 (23:09)
[2021-05-10] MEDS ORDERED: MENTHOL/PHENOL 1 EACH UD MM PRN (23:09)
[2021-05-10] MEDS ORDERED: diazePAM 5 MG TABLET PO PRN (23:12)
[2021-05-10 23:42] VITALS: BMI 23.3
[2021-05-11] MEDS ORDERED: diazePAM 5 MG TABLET ONE ×3 (02:38→10:18)
[2021-05-11] MEDS: diazePAM 5 MG TABLET PO SCH ×5 (02:40→22:20)
[2021-05-11] MEDS ORDERED: hydrOXYzine PAMOATE 25 MG CAPSULE (FP) PO ONE ×2 (05:05→10:18)
[2021-05-11] MEDS: hydrOXYzine PAMOATE 25 MG CAPSULE (FP) PO SCH ×5 (05:50→22:19)
[2021-05-11] MEDS: NICOTINE POLACRILEX 2 MG GUM BUC PRN ×4 (10:21→19:41)
[2021-05-11] MEDS: PRENATAL VITAMINS W/ FOLIC ACID TABLET (FP) PO SCH (10:21)
[2021-05-11 10:43] LABS: CALCIUM 8.8 mg/dL (8.5-10.1)
[2021-05-11 10:44] LABS: ALBUMIN 3.6 g/dl (3.4-5.0)
[2021-05-11 10:45] LABS: HEMATOCRIT 39.3 % (35.4-49); HEMOGLOBIN 13.7 GM/dL (11.7-16.9); MCH 31.1 pg (25.7-33.7); MCHC 34.8 g/dl (32.0-35.9); MEAN CELL VOLUME 89.4 fl (80-96); PLATELET COUNT 208 10^3/uL (134-434); WHITE BLOOD COUNT 6.6 K/mm3 (4.0-10.0)
[2021-05-11 10:47] LABS: CREATININE 0.9 mg/dL (0.55-1.3)
[2021-05-11 10:49] LABS: BILIRUBIN,TOTAL 1.1 mg/dL (0.2-1); TOT PROT 6.6 g/dl (6.4-8.2)
[2021-05-11] MEDS: NICOTINE 10 MG CARTRIDGE (INHALER) IH PRN (17:27)
[2021-05-11] MEDS ORDERED: QUEtiapine FUMARATE 100 MG TABLET (FP) PO SCH (22:00)
[2021-05-11] MEDS ORDERED: THIAMINE HCL 100 MG TABLET (FP) PO SCH (22:00)
[2021-05-11] MEDS ORDERED: MELATONIN 5 MG TABLETS PO SCH (22:00)
[2021-05-12] MEDS ORDERED: diazePAM 5 MG TABLET PO SCH ×2 (06:00→11:00)
[2021-05-12] MEDS: hydrOXYzine PAMOATE 25 MG CAPSULE (FP) PO SCH ×4 (06:47→14:08)
[2021-05-12] MEDS: NICOTINE POLACRILEX 2 MG GUM BUC PRN (06:49)
[2021-05-12] MEDS ORDERED: diazePAM 5 MG TABLET PO PRN (09:05)
[2021-05-12] MEDS ORDERED: cloNIDine HCL 0.1 MG TABLET PO PRN (09:10)
[2021-05-12] MEDS ORDERED: NICOTINE POLACRILEX 2 MG GUM BUC PRN (09:10)
[2021-05-12] MEDS: diazePAM 5 MG TABLET PO SCH ×2 (09:53→14:07)
[2021-05-12] MEDS: PRENATAL VITAMINS W/ FOLIC ACID TABLET (FP) PO SCH (09:55)
[2021-05-12] MEDS: NICOTINE POLACRILEX 4 MG GUM BUC PRN ×2 (09:58→12:33)
[2021-05-12] MEDS: NICOTINE 10 MG CARTRIDGE (INHALER) IH PRN (10:39)
[2021-05-12 13:11] VITALS: BP 110/58; PULSE 70; TEMP 97.7
[2021-05-12] MEDS ORDERED: PRAZOSIN HCL 1 MG CAPSULE PO SCH (22:00)
[2021-05-13] MEDS ORDERED: diazePAM 5 MG TABLET PO SCH (06:00)
[2021-05-13] MEDS ORDERED: VENLAFAXINE HCL 75 MG E.R. CAPSULES PO SCH (10:00)
[2021-05-14] MEDS ORDERED: diazePAM 5 MG TABLET PO SCH (06:00)
[2021-05-14] MEDS ORDERED: diazePAM 5 MG TABLET PO ONE (06:00)
[2021-05-15] MEDS ORDERED: diazePAM 5 MG TABLET PO SCH (06:00)
[2021-05-16] MEDS ORDERED: diazePAM 5 MG TABLET PO ONE (06:00)
== END 2021-05-12 16:35 | disposition left against medical advice (07) | DRG 770 ==
LOC: YASAS 20:31 → Y3N 05-11 11:44
PROVIDERS: ADMIT Allergy & Immunology; ATTEND Allergy & Immunology
PROC: HZ2ZZZZ Detoxification Services for Substance Abuse Treatment (ICD-10-PCS; principal; 2021-05-11)
DX: F10.230 Alcohol dependence with withdrawal, uncomplicated (principal); F17.210 Nicotine dependence, cigarettes, uncomplicated; F19.24 Other psychoactive substance dependence with psychoactive substance-induced mood disorder; G47.00 Insomnia, unspecified; B18.2 Chronic viral hepatitis C; Z56.0 Unemployment, unspecified
CPT/HCPCS: 36415; 80053; 85027; 86780; C9803; U0003; U0005

== ENCOUNTER 2023-08-17 15:46 | Inpatient (IN) | payer OTHER ==
[2023-08-17 08:56] VITALS: BMI 22.2
[~2023-08-17 15:46] MED LIST: ACETAMINOPHEN 325 MG TABLET (FP) PO PRN; BENZOCAINE/MENTHOL (CHLORASEPTIC ) LOZENGE MM PRN; BENZONATATE 200 MG CAPSULE PO PRN; BISMUTH SUBSALICYLATE 262 MG/15 ML BTL PO PRN; DICYCLOMINE HCL 10 MG CAPSULE PO PRN; IBUPROFEN 400 MG TABLET (FP) PO PRN; IBUPROFEN 600 MG TABLET (FP) PO PRN; LOPERAMIDE HCL 2 MG CAPSULE PO PRN; MAG HYDROX/AL HYDROX/SIMETH 30 ML UNIT-DOSE CUP PO PRN; MAGNESIUM HYDROX 2400MG/30ML ORAL SUSPENSION 30 ML CUP PO PRN; NALOXONE HCL (KLOXXADO) 8 MG SPRAY NS PRN; NALOXONE HCL 0.4 MG/ML VIAL IM PRN; ONDANSETRON *ODT* 4 MG TABLET SL PRN; P-EPHED 60MG/TRIPROLIDI 2.5MG TABLET PO PRN; POLYETHYLENE GLYCOL (HEALTHYLAX) 3350 17 GM PACKET PO PRN; guaiFENesin 600 MG TABLET.ER (FP) PO PRN
[2023-08-17] MEDS ORDERED: cloNIDine HCL 0.1 MG TABLET PO PRN (21:52)
[2023-08-17] MEDS ORDERED: methaDONE HCL 10 MG TABLET (FOR DETOX USE ONLY) PO ONE (21:52)
[2023-08-17] MEDS: PRENATAL VITAMINS W/ FOLIC ACID TABLET (FP) PO SCH (21:59)
[2023-08-17] MEDS: diazePAM 5 MG TABLET PO PRN (22:06)
[2023-08-17] MEDS: MELATONIN 5 MG TABLETS PO SCH (22:06)
[2023-08-17] MEDS: THIAMINE HCL 100 MG TABLET (FP) PO SCH (22:06)
[2023-08-18] MEDS: NICOTINE POLACRILEX 2 MG GUM BUC PRN ×2 (06:27→09:03)
[2023-08-18] MEDS: diazePAM 5 MG TABLET PO PRN ×4 (07:59→22:36)
[2023-08-18 08:27] LABS: HEMATOCRIT 36.7 % (35.4-49); HEMOGLOBIN 12.1 GM/dL (11.7-16.9); MCH 29.4 pg (25.7-33.7); MCHC 32.9 g/dl (32.0-35.9); MEAN CELL VOLUME 89.3 fl (80-96); MEAN PLT VOLUME 8.7 fl (7.5-11.1); PLATELET COUNT 289 10^3/uL (134-434); RBC 4.11 M/mm3 (4.00-5.60); RDW 13.7 % (11.9-15.9); WHITE BLOOD COUNT 9.2 K/mm3 (4.0-10.0)
[2023-08-18 08:35] LABS: ALBUMIN 3.2 g/dl (3.4-5.0); BLOOD UREA NITROGEN 13.4 mg/dL (7-18); CALCIUM 8.3 mg/dL (8.5-10.1)
[2023-08-18 08:37] LABS: CREATININE 0.9 mg/dL (0.55-1.3)
[2023-08-18 08:39] LABS: BILIRUBIN,TOTAL 0.2 mg/dL (0.2-1); TOT PROT 5.8 g/dl (6.4-8.2)
[2023-08-18] MEDS ORDERED: methaDONE HCL 10 MG TABLET (FOR DETOX USE ONLY) PO ONE (10:00)
[2023-08-18] MEDS: PRENATAL VITAMINS W/ FOLIC ACID TABLET (FP) PO SCH (10:01)
[2023-08-18] MEDS: NICOTINE 21 MG/24 HOURS TOPICAL PATCH TD SCH (13:10)
[2023-08-18] MEDS: NICOTINE POLACRILEX 4 MG GUM BUC PRN ×4 (14:56→22:09)
[2023-08-18] MEDS: THIAMINE HCL 100 MG TABLET (FP) PO SCH (22:07)
[2023-08-18] MEDS: traZODone HCL 50 MG TABLET (FP) PO SCH (22:07)
[2023-08-18] MEDS: MELATONIN 5 MG TABLETS PO SCH (22:07)
[2023-08-18] MEDS: hydrOXYzine PAMOATE 25 MG CAPSULE (FP) PO PRN (22:07)
[2023-08-18] MEDS: METHOCARBAMOL 500 MG TABLET PO PRN (22:07)
[2023-08-19] MEDS ORDERED: methaDONE HCL 10 MG TABLET (FOR DETOX USE ONLY) PO ONE ×3 (10:00)
[2023-08-19] MEDS: ARIPiprazole 5 MG TABLET PO SCH (10:21)
[2023-08-19] MEDS: NICOTINE 21 MG/24 HOURS TOPICAL PATCH TD SCH (10:21)
[2023-08-19] MEDS: diazePAM 5 MG TABLET PO PRN ×4 (10:23→22:11)
[2023-08-19] MEDS: PRENATAL VITAMINS W/ FOLIC ACID TABLET (FP) PO SCH (10:23)
[2023-08-19] MEDS: NICOTINE POLACRILEX 4 MG GUM BUC PRN ×6 (10:26→22:00)
[2023-08-19] MEDS: METHOCARBAMOL 500 MG TABLET PO PRN ×2 (12:48→22:10)
[2023-08-19] MEDS: MELATONIN 5 MG TABLETS PO SCH (22:10)
[2023-08-19] MEDS: THIAMINE HCL 100 MG TABLET (FP) PO SCH (22:10)
[2023-08-19] MEDS: traZODone HCL 50 MG TABLET (FP) PO SCH (22:10)
[2023-08-20] MEDS: diazePAM 5 MG TABLET PO PRN ×4 (08:45→21:23)
[2023-08-20] MEDS: NICOTINE POLACRILEX 4 MG GUM BUC PRN ×7 (08:46→21:49)
[2023-08-20] MEDS: PRENATAL VITAMINS W/ FOLIC ACID TABLET (FP) PO SCH (10:13)
[2023-08-20] MEDS: ARIPiprazole 5 MG TABLET PO SCH (10:13)
[2023-08-20] MEDS: NICOTINE 21 MG/24 HOURS TOPICAL PATCH TD SCH (10:14)
[2023-08-20] MEDS: METHOCARBAMOL 500 MG TABLET PO PRN ×2 (10:15→17:26)
[2023-08-20] MEDS: traZODone HCL 50 MG TABLET (FP) PO SCH (21:24)
[2023-08-20] MEDS: THIAMINE HCL 100 MG TABLET (FP) PO SCH (21:24)
[2023-08-20] MEDS: MELATONIN 5 MG TABLETS PO SCH (21:27)
[2023-08-21] MEDS: NICOTINE POLACRILEX 4 MG GUM BUC PRN ×6 (08:13→22:05)
[2023-08-21] MEDS ORDERED: methaDONE HCL 10 MG TABLET (FOR DETOX USE ONLY) PO ONE ×2 (10:00)
[2023-08-21] MEDS: ARIPiprazole 5 MG TABLET PO SCH (10:06)
[2023-08-21] MEDS: PRENATAL VITAMINS W/ FOLIC ACID TABLET (FP) PO SCH (10:06)
[2023-08-21] MEDS: METHOCARBAMOL 500 MG TABLET PO PRN ×2 (10:06→22:05)
[2023-08-21] MEDS: NICOTINE 21 MG/24 HOURS TOPICAL PATCH TD SCH (10:06)
[2023-08-21] MEDS: hydrOXYzine PAMOATE 25 MG CAPSULE (FP) PO PRN ×2 (13:12→22:05)
[2023-08-21] MEDS ORDERED: cloNIDine HCL 0.1 MG TABLET PO PRN (16:43)
[2023-08-21] MEDS: THIAMINE HCL 100 MG TABLET (FP) PO SCH (22:05)
[2023-08-21] MEDS: traZODone HCL 50 MG TABLET (FP) PO SCH (22:05)
[2023-08-21] MEDS: MELATONIN 5 MG TABLETS PO SCH (22:05)
[2023-08-22] MEDS: NICOTINE POLACRILEX 4 MG GUM BUC PRN (07:49)
[2023-08-22] MEDS: ARIPiprazole 5 MG TABLET PO SCH (09:02)
[2023-08-22] MEDS: PRENATAL VITAMINS W/ FOLIC ACID TABLET (FP) PO SCH (09:02)
[2023-08-22 09:03] VITALS: BP 116/69; PULSE 92; RESP 18; TEMP 98
[2023-08-22] MEDS: NICOTINE 21 MG/24 HOURS TOPICAL PATCH TD SCH (09:03)
== END 2023-08-22 09:23 | disposition other institution (70) | DRG 773 ==
LOC: YASAS 15:46 → Y3N 21:25
PROVIDERS: ADMIT Allergy & Immunology; ATTEND Surgery
PROC: HZ2ZZZZ Detoxification Services for Substance Abuse Treatment (ICD-10-PCS; principal; 2023-08-17)
DX: F11.23 Opioid dependence with withdrawal (principal); F14.20 Cocaine dependence, uncomplicated; F12.20 Cannabis dependence, uncomplicated; F17.210 Nicotine dependence, cigarettes, uncomplicated; F19.24 Other psychoactive substance dependence with psychoactive substance-induced mood disorder; F43.10 Post-traumatic stress disorder, unspecified; F41.1 Generalized anxiety disorder; F32.A Depression, unspecified; B18.2 Chronic viral hepatitis C; G47.00 Insomnia, unspecified; Z91.199 Patient's noncompliance with other medical treatment and regimen due to unspecified reason
CPT/HCPCS: 36415; 80053; 85027; 86780; 87635; 87811

== ENCOUNTER 2023-11-09 18:59 | Inpatient (IN) | payer OTHER ==
[2023-11-09 19:20] VITALS: BMI 21.9
[2023-11-09] MEDS ORDERED: MAGNESIUM HYDROX 2400MG/30ML ORAL SUSPENSION 30 ML CUP PO PRN (19:40)
[2023-11-09] MEDS ORDERED: MAG HYDROX/AL HYDROX/SIMETH 30 ML UNIT-DOSE CUP PO PRN (19:40)
[2023-11-09] MEDS ORDERED: NALOXONE HCL (KLOXXADO) 8 MG SPRAY NS PRN (19:40)
[2023-11-09] MEDS ORDERED: ACETAMINOPHEN 325 MG TABLET (FP) PO PRN (19:40)
[2023-11-09] MEDS ORDERED: LOPERAMIDE HCL 2 MG CAPSULE PO PRN (19:40)
[2023-11-09] MEDS ORDERED: IBUPROFEN 400 MG TABLET (FP) PO PRN (19:40)
[2023-11-09] MEDS ORDERED: guaiFENesin 600 MG TABLET.ER (FP) PO PRN (19:40)
[2023-11-09] MEDS ORDERED: BENZOCAINE/MENTHOL (CHLORASEPTIC ) LOZENGE MM PRN (19:40)
[2023-11-09] MEDS ORDERED: P-EPHED 60MG/TRIPROLIDI 2.5MG TABLET PO PRN (19:40)
[2023-11-09] MEDS ORDERED: IBUPROFEN 600 MG TABLET (FP) PO PRN (19:40)
[2023-11-09] MEDS ORDERED: POLYETHYLENE GLYCOL (HEALTHYLAX) 3350 17 GM PACKET PO PRN (19:40)
[2023-11-09] MEDS ORDERED: BENZONATATE 200 MG CAPSULE PO PRN (19:40)
[2023-11-09] MEDS ORDERED: NALOXONE HCL 0.4 MG/ML VIAL IM PRN (19:40)
[2023-11-09] MEDS ORDERED: BUPRENORPHINE/NALOXONE 2 MG/0.5 MG FILM PACKET ONE (20:06)
[2023-11-09] MEDS: BUPRENORPHINE/NALOXONE 2 MG/0.5 MG FILM PACKET SL ONE (20:20)
[2023-11-09] MEDS: METHOCARBAMOL 500 MG TABLET PO SCH (20:21)
[2023-11-09] MEDS: METHOCARBAMOL 500 MG TABLET PO ONE (20:21)
[2023-11-09] MEDS: THIAMINE HCL 100 MG TABLET (FP) PO SCH (21:40)
[2023-11-09] MEDS: traZODone HCL 50 MG TABLET (FP) PO ONE (21:40)
[2023-11-09] MEDS: NICOTINE POLACRILEX 2 MG GUM BUC PRN (21:40)
[2023-11-09] MEDS: MELATONIN 5 MG TABLETS PO SCH (21:40)
[2023-11-09] MEDS: BUPRENORPHINE/NALOXONE 4 MG/1 MG FILM PACKET SL ONE (21:57)
[2023-11-10] MEDS: BUPRENORPHINE/NALOXONE 4 MG/1 MG FILM PACKET SL SCH (06:14)
[2023-11-10] MEDS: PRENATAL VITAMINS W/ FOLIC ACID TABLET (FP) PO SCH (09:33)
[2023-11-10 11:36] LABS: HEMATOCRIT 37.5 % (35.4-49); HEMOGLOBIN 12.8 GM/dL (11.7-16.9); MCH 30.3 pg (25.7-33.7); MCHC 34.1 g/dl (32.0-35.9); MEAN PLT VOLUME 8.4 fl (7.5-11.1); PLATELET COUNT 330 10^3/uL (134-434); RBC 4.22 M/mm3 (4.00-5.60); RDW 13.4 % (11.9-15.9); WHITE BLOOD COUNT 9.3 K/mm3 (4.0-10.0)
[2023-11-10 11:36] LABS: URINE APPEARANCE CLEAR; URINE BILIRUBIN NEGATIVE (NEGATIVE); URINE COLOR DK YELLOW; URINE GLUCOSE (UA) NEGATIVE (NEGATIVE); URINE KETONE NEGATIVE (NEGATIVE); URINE LEUK ESTERASE NEGATIVE (NEGATIVE); URINE NITRITE NEGATIVE (NEGATIVE); URINE PROTEIN TRACE (NEGATIVE)
[2023-11-10 11:41] LABS: POTASSIUM 4.1 mmol/L (3.5-5.1)
[2023-11-10 11:52] LABS: CALCIUM 8.9 mg/dL (8.5-10.1)
[2023-11-10 11:53] LABS: ALBUMIN 3.5 g/dl (3.4-5.0); BLOOD UREA NITROGEN 12.2 mg/dL (7-18)
[2023-11-10 11:56] LABS: CREATININE 1.1 mg/dL (0.55-1.3)
[2023-11-10 11:58] LABS: BILIRUBIN,TOTAL 0.3 mg/dL (0.2-1); TOT PROT 6.6 g/dl (6.4-8.2)
[2023-11-10] MEDS: ARIPiprazole 5 MG TABLET PO SCH (12:07)
[2023-11-10] MEDS: VENLAFAXINE HCL 37.5 MG E.R. CAPSULE PO SCH (12:07)
[2023-11-10] MEDS: GABAPENTIN 100 MG CAPSULE PO SCH (13:19)
[2023-11-10] MEDS: METHOCARBAMOL 750 MG TAB PO SCH (13:19)
[2023-11-10] MEDS: NICOTINE 21 MG/24 HOURS TOPICAL PATCH TD SCH (15:18)
[2023-11-10] MEDS: NICOTINE POLACRILEX 4 MG GUM BUC PRN (15:19)
[2023-11-10] MEDS: traZODone HCL 100 MG TABLET (FP) PO SCH (21:58)
[2023-11-11] MEDS: BUPRENORPHINE/NALOXONE 8 MG/2 MG FILM PACKET SL ONE (07:33)
[2023-11-11] MEDS: BUPRENORPHINE/NALOXONE 4 MG/1 MG FILM PACKET SL SCH ×2 (11:48→17:46)
[2023-11-13 06:59] VITALS: BP 121/83; PULSE 71; RESP 18; TEMP 97.5
== END 2023-11-13 11:31 | disposition left against medical advice (07) | DRG 770 ==
LOC: YASAS 18:59 → Y3W 20:29 → Y3N 11-12 22:53 → Y3W 11-12 22:56
PROVIDERS: ADMIT Allergy & Immunology; ATTEND Psychiatry & Neurology Pain Medicine
PROC: HZ42ZZZ Group Counseling for Substance Abuse Treatment, Cognitive-Behavioral (ICD-10-PCS; principal; 2023-11-09)
DX: F14.20 Cocaine dependence, uncomplicated (principal); F11.20 Opioid dependence, uncomplicated; F10.20 Alcohol dependence, uncomplicated; F12.20 Cannabis dependence, uncomplicated; F13.10 Sedative, hypnotic or anxiolytic abuse, uncomplicated; F17.210 Nicotine dependence, cigarettes, uncomplicated; F33.1 Major depressive disorder, recurrent, moderate; F41.9 Anxiety disorder, unspecified; Z86.59 Personal history of other mental and behavioral disorders; Z59.02 Unsheltered homelessness
CPT/HCPCS: 36415; 80053; 80305; 81003; 85027; 86780

== ENCOUNTER 2023-12-06 13:55 | Inpatient (IN) | payer OTHER ==
[2023-12-06 14:23] VITALS: BMI 20.9
[2023-12-06] MEDS ORDERED: MAGNESIUM HYDROX 2400MG/30ML ORAL SUSPENSION 30 ML CUP PO PRN (14:35)
[2023-12-06] MEDS ORDERED: LOPERAMIDE HCL 2 MG CAPSULE PO PRN (14:35)
[2023-12-06] MEDS ORDERED: BENZONATATE 200 MG CAPSULE PO PRN (14:35)
[2023-12-06] MEDS ORDERED: BISMUTH SUBSALICYLATE 262 MG/15 ML BTL PO PRN (14:35)
[2023-12-06] MEDS ORDERED: DICYCLOMINE HCL 10 MG CAPSULE PO PRN (14:35)
[2023-12-06] MEDS ORDERED: POLYETHYLENE GLYCOL (HEALTHYLAX) 3350 17 GM PACKET PO PRN (14:35)
[2023-12-06] MEDS ORDERED: ONDANSETRON *ODT* 4 MG TABLET SL PRN (14:35)
[2023-12-06] MEDS ORDERED: guaiFENesin 600 MG TABLET.ER (FP) PO PRN (14:35)
[2023-12-06] MEDS ORDERED: BENZOCAINE/MENTHOL (CHLORASEPTIC ) LOZENGE MM PRN (14:35)
[2023-12-06] MEDS ORDERED: MAG HYDROX/AL HYDROX/SIMETH 30 ML UNIT-DOSE CUP PO PRN (14:35)
[2023-12-06] MEDS ORDERED: P-EPHED 60MG/TRIPROLIDI 2.5MG TABLET PO PRN (14:35)
[2023-12-06] MEDS: NICOTINE 21 MG/24 HOURS TOPICAL PATCH TD SCH (15:46)
[2023-12-06] MEDS: THIAMINE 100 MG TABLET PO SCH (22:09)
[2023-12-06] MEDS: MELATONIN 5 MG TABLETS PO SCH (22:09)
[2023-12-06] MEDS: METHOCARBAMOL 500 MG TABLET PO PRN (22:09)
[2023-12-07] MEDS ORDERED: cloNIDine HCL 0.1 MG TABLET PO PRN (08:58)
[2023-12-07] MEDS: PRENATAL VITAMINS W/ FOLIC ACID TABLET (FP) PO SCH (09:29)
[2023-12-07] MEDS: methaDONE HCL 10 MG TABLET (FOR DETOX USE ONLY) PO ONE (09:31)
[2023-12-07] MEDS: ARIPiprazole 5 MG TABLET PO SCH (11:00)
[2023-12-07] MEDS: VENLAFAXINE HCL 150 MG E.R. CAPSULE PO SCH (11:12)
[2023-12-07] MEDS: diazePAM 5 MG TABLET PO PRN (13:53)
[2023-12-07] MEDS: GABAPENTIN 100 MG CAPSULE PO SCH (13:55)
[2023-12-07] MEDS: AMOX TR/POT CLAV 875MG/125MG TABLETS (FP) PO SCH (17:12)
[2023-12-07] MEDS: diazePAM 5 MG TABLET PO SCH (17:13)
[2023-12-07] MEDS: IBUPROFEN 600 MG TABLET (FP) PO PRN (19:55)
[2023-12-07] MEDS: traZODone HCL 100 MG TABLET (FP) PO SCH (22:51)
[2023-12-07] MEDS: CHLORHEXIDINE GLUCONATE 0.12% 15ML CUP MM SCH (22:53)
[2023-12-09] MEDS: diazePAM 5 MG TABLET PO SCH (06:01)
[2023-12-09] MEDS: ACETAMINOPHEN 325 MG TABLET (FP) PO PRN (06:02)
[2023-12-09] MEDS: methaDONE HCL 10 MG TABLET (FOR DETOX USE ONLY) PO ONE (09:23)
[2023-12-10] MEDS: diazePAM 5 MG TABLET PO SCH (05:58)
[2023-12-10] MEDS: IBUPROFEN 400 MG TABLET (FP) PO PRN (06:00)
[2023-12-10 11:04] LABS: POTASSIUM 4.5 mmol/L (3.5-5.1)
[2023-12-10 11:06] LABS: BASO % 0.6 % (0-2.0); EOS % 5.7 % (0-4.5); HEMATOCRIT 34.2 % (35.4-49); HEMOGLOBIN 11.3 GM/dL (11.7-16.9); LYMPH % 36.6 % (8-40); MCH 29.4 pg (25.7-33.7); MCHC 33.2 g/dl (32.0-35.9); MEAN CELL VOLUME 88.6 fl (80-96); MONO % 9.1 % (3.8-10.2); PLATELET COUNT 227 10^3/uL (134-434); RBC 3.86 M/mm3 (4.00-5.60); RDW 13.7 % (11.9-15.9); WHITE BLOOD COUNT 5.3 K/mm3 (4.0-10.0)
[2023-12-10 11:09] LABS: CALCIUM 8.9 mg/dL (8.5-10.1)
[2023-12-10 11:10] LABS: ALBUMIN 3.1 g/dl (3.4-5.0); BLOOD UREA NITROGEN 13.9 mg/dL (7-18)
[2023-12-10 11:13] LABS: CREATININE 0.9 mg/dL (0.55-1.3)
[2023-12-10 11:14] LABS: BILIRUBIN,TOTAL 0.6 mg/dL (0.2-1); TOT PROT 6.1 g/dl (6.4-8.2)
[2023-12-11] MEDS: diazePAM 5 MG TABLET PO ONE (05:22)
[2023-12-11] MEDS: methaDONE HCL 10 MG TABLET (FOR DETOX USE ONLY) PO ONE ×2 (09:25)
[2023-12-11] MEDS: hydrOXYzine PAMOATE 25 MG CAPSULE (FP) PO PRN (12:45)
[2023-12-11] MEDS: NICOTINE POLACRILEX 4 MG LOZENGE BC PRN (12:46)
[2023-12-11] MEDS: NICOTINE POLACRILEX 2 MG GUM BC PRN (15:16)
[2023-12-11] MEDS: NICOTINE POLACRILEX 2 MG LOZENGE BC PRN (19:28)
[2023-12-12] MEDS ORDERED: methaDONE HCL 40 MG DISPERSABLE TABLET PO ONE (06:00)
[2023-12-12 09:11] VITALS: BP 116/72; PULSE 94; RESP 18; TEMP 97.3
== END 2023-12-12 12:21 | disposition other institution (70) | DRG 773 ==
LOC: YASAS 13:55 → Y6N 15:29
PROVIDERS: ADMIT Allergy & Immunology; ATTEND Surgery
PROC: HZ2ZZZZ Detoxification Services for Substance Abuse Treatment (ICD-10-PCS; principal; 2023-12-06)
DX: F11.23 Opioid dependence with withdrawal (principal); F12.10 Cannabis abuse, uncomplicated; F17.210 Nicotine dependence, cigarettes, uncomplicated; F25.0 Schizoaffective disorder, bipolar type; F33.1 Major depressive disorder, recurrent, moderate; F41.8 Other specified anxiety disorders; F43.10 Post-traumatic stress disorder, unspecified; R63.4 Abnormal weight loss; Z68.21 Body mass index [BMI] 21.0-21.9, adult; Z91.410 Personal history of adult physical and sexual abuse; Z65.3 Problems related to other legal circumstances; Z56.0 Unemployment, unspecified; Z59.00 Homelessness unspecified
CPT/HCPCS: 36415; 80053; 85025

== ENCOUNTER 2023-12-12 12:18 | Inpatient (IN) | payer OTHER ==
[~2023-12-12 12:18] MED LIST changes: -BISMUTH SUBSALICYLATE 262 MG/15 ML BTL PO PRN; -DICYCLOMINE HCL 10 MG CAPSULE PO PRN; -IBUPROFEN 600 MG TABLET (FP) PO PRN; -ONDANSETRON *ODT* 4 MG TABLET SL PRN; -P-EPHED 60MG/TRIPROLIDI 2.5MG TABLET PO PRN
[2023-12-12] MEDS: NICOTINE POLACRILEX 2 MG LOZENGE BC PRN (13:34)
[2023-12-12] MEDS: GABAPENTIN 100 MG CAPSULE PO SCH (13:34)
[2023-12-12] MEDS: IBUPROFEN 600 MG TABLET (FP) PO PRN (14:28)
[2023-12-12] MEDS: MELATONIN 5 MG TABLETS PO SCH (22:09)
[2023-12-12] MEDS: traZODone HCL 100 MG TABLET (FP) PO SCH (22:09)
[2023-12-12] MEDS: THIAMINE 100 MG TABLET PO SCH (22:09)
[2023-12-12] MEDS: CHLORHEXIDINE GLUCONATE 0.12% 15ML CUP MM SCH (22:10)
[2023-12-13] MEDS: methaDONE 40 MG, methaDONE 10 MG PO SCH (06:13)
[2023-12-13] MEDS: ARIPiprazole 5 MG TABLET PO SCH (09:35)
[2023-12-13] MEDS: PRENATAL VITAMINS W/ FOLIC ACID TABLET (FP) PO SCH (09:35)
[2023-12-13] MEDS: NICOTINE 21 MG/24 HOURS TOPICAL PATCH TD SCH (09:35)
[2023-12-13] MEDS: VENLAFAXINE HCL 150 MG E.R. CAPSULE PO SCH (11:39)
[2023-12-13] MEDS: GABAPENTIN 300 MG CAPSULE PO SCH ×2 (15:08→21:15)
[2023-12-13] MEDS: hydrOXYzine PAMOATE 25 MG CAPSULE (FP) PO PRN (21:15)
[2023-12-13] MEDS: BACLOFEN 10 MG TABLET (FP) PO SCH (21:16)
[2023-12-14] MEDS: methaDONE HCL 40 MG DISPERSABLE TABLET PO SCH (06:21)
[2023-12-15] MEDS: methaDONE 40 MG, methaDONE 20 MG PO SCH ×2 (06:53→07:01)
[2023-12-19 06:25] VITALS: RESP 16
[2023-12-20 06:37] VITALS: BP 108/69; PULSE 74; TEMP 97.9
== END 2023-12-20 09:12 | disposition home or self-care (01) | DRG 772 ==
LOC: YASAS 12:18 → Y3E 12:20
PROVIDERS: ADMIT Allergy & Immunology; ATTEND Psychiatry & Neurology Pain Medicine
PROC: HZ42ZZZ Group Counseling for Substance Abuse Treatment, Cognitive-Behavioral (ICD-10-PCS; principal; 2023-12-12)
DX: F11.20 Opioid dependence, uncomplicated (principal); F14.20 Cocaine dependence, uncomplicated; F12.20 Cannabis dependence, uncomplicated; F17.210 Nicotine dependence, cigarettes, uncomplicated; F25.0 Schizoaffective disorder, bipolar type; F41.8 Other specified anxiety disorders; R63.4 Abnormal weight loss; Z68.22 Body mass index [BMI] 22.0-22.9, adult
CPT/HCPCS: 36415; 86803; 87522; J0475

== ENCOUNTER 2023-12-21 10:03 | Inpatient (IN) | payer OTHER ==
[2023-12-21 10:25] VITALS: BMI 22.6
[2023-12-21] MEDS ORDERED: BISMUTH SUBSALICYLATE 262 MG/15 ML BTL PO PRN (11:08)
[2023-12-21] MEDS ORDERED: NALOXONE HCL (KLOXXADO) 8 MG SPRAY NS PRN (11:08)
[2023-12-21] MEDS ORDERED: DICYCLOMINE HCL 10 MG CAPSULE PO PRN (11:08)
[2023-12-21] MEDS ORDERED: IBUPROFEN 600 MG TABLET (FP) PO PRN (11:08)
[2023-12-21] MEDS ORDERED: POLYETHYLENE GLYCOL (HEALTHYLAX) 3350 17 GM PACKET PO PRN (11:08)
[2023-12-21] MEDS ORDERED: BENZONATATE 200 MG CAPSULE PO PRN (11:08)
[2023-12-21] MEDS ORDERED: IBUPROFEN 400 MG TABLET (FP) PO PRN (11:08)
[2023-12-21] MEDS ORDERED: MAG HYDROX/AL HYDROX/SIMETH 30 ML UNIT-DOSE CUP PO PRN (11:08)
[2023-12-21] MEDS ORDERED: MAGNESIUM HYDROX 2400MG/30ML ORAL SUSPENSION 30 ML CUP PO PRN (11:08)
[2023-12-21] MEDS ORDERED: ACETAMINOPHEN 325 MG TABLET (FP) PO PRN (11:08)
[2023-12-21] MEDS ORDERED: LOPERAMIDE HCL 2 MG CAPSULE PO PRN (11:08)
[2023-12-21] MEDS ORDERED: NALOXONE HCL 0.4 MG/ML VIAL IM PRN (11:08)
[2023-12-21] MEDS ORDERED: METHOCARBAMOL 500 MG TABLET PO PRN (11:08)
[2023-12-21] MEDS ORDERED: guaiFENesin 600 MG TABLET.ER (FP) PO PRN (11:08)
[2023-12-21] MEDS ORDERED: ONDANSETRON *ODT* 4 MG TABLET SL PRN (11:08)
[2023-12-21] MEDS ORDERED: BENZOCAINE/MENTHOL (CHLORASEPTIC ) LOZENGE MM PRN (11:08)
[2023-12-21] MEDS ORDERED: NICOTINE 21 MG/24 HOURS TOPICAL PATCH ONE (12:02)
[2023-12-21] MEDS: NICOTINE 21 MG/24 HOURS TOPICAL PATCH TD SCH (12:03)
[2023-12-21] MEDS: methaDONE 40 MG, methaDONE 30 MG PO ONE (12:55)
[2023-12-21] MEDS ORDERED: methaDONE HCL 10 MG TABLET PO ONE (13:00)
[2023-12-21] MEDS: MELATONIN 5 MG TABLETS PO SCH (22:13)
[2023-12-21] MEDS: GABAPENTIN 100 MG CAPSULE PO SCH (22:13)
[2023-12-21] MEDS: THIAMINE 100 MG TABLET PO SCH (22:13)
[2023-12-21] MEDS: CHLORHEXIDINE GLUCONATE 118 ML MOUTHWASH MM SCH (22:13)
[2023-12-21] MEDS: traZODone HCL 100 MG TABLET (FP) PO SCH (22:13)
[2023-12-22] MEDS: methaDONE HCL 40 MG DISPERSABLE TABLET PO ONE (05:35)
[2023-12-22] MEDS: ARIPiprazole 5 MG TABLET PO SCH (09:03)
[2023-12-22] MEDS: VENLAFAXINE HCL 75 MG E.R. CAPSULES PO SCH (09:03)
[2023-12-22 12:28] LABS: HEMATOCRIT 35.1 % (35.4-49); MCH 29.7 pg (25.7-33.7); MCHC 34.1 g/dl (32.0-35.9); MEAN CELL VOLUME 87.1 fl (80-96); MEAN PLT VOLUME 8.3 fl (7.5-11.1); PLATELET COUNT 345 10^3/uL (134-434); RBC 4.03 M/mm3 (4.00-5.60); RDW 13.6 % (11.9-15.9); WHITE BLOOD COUNT 7.3 K/mm3 (4.0-10.0)
[2023-12-22 12:52] LABS: CHLORIDE 102 mmol/L (98-107); POTASSIUM 4.6 mmol/L (3.5-5.1); SODIUM 137 mmol/L (136-145)
[2023-12-22 13:00] LABS: ALBUMIN 3.4 g/dl (3.4-5.0); ANION GAP 4 mmol/L (4-13); BLOOD UREA NITROGEN 14.2 mg/dL (7-18); CALCIUM 9.1 mg/dL (8.5-10.1); CO2 31 mmol/L (21-32); GLUCOSE,RANDOM 80 mg/dL (74-106)
[2023-12-22 13:03] LABS: ALK PHOS 87 U/L (45-117); SGOT/AST 21 U/L (15-37); SGPT/ALT 15 U/L (13-61)
[2023-12-22 13:04] LABS: BILIRUBIN,TOTAL 0.3 mg/dL (0.2-1); TOT PROT 7.5 g/dl (6.4-8.2)
[2023-12-22] MEDS: GABAPENTIN 300 MG CAPSULE PO SCH (14:06)
[2023-12-23] MEDS: methaDONE 80 MG, methaDONE 10 MG PO SCH (05:54)
[2023-12-23] MEDS ORDERED: methaDONE HCL 10 MG TABLET PO SCH (06:00)
[2023-12-24] MEDS ORDERED: methaDONE HCL 10 MG TABLET PO SCH (06:00)
[2023-12-25] MEDS ORDERED: methaDONE HCL 10 MG TABLET PO SCH (06:00)
[2023-12-25] MEDS: hydrOXYzine PAMOATE 25 MG CAPSULE (FP) PO PRN (09:54)
[2023-12-25 13:40] VITALS: RESP 16
[2023-12-26 09:23] VITALS: BP 111/62; PULSE 84; TEMP 97.7
== END 2023-12-26 10:50 | disposition other institution (70) | DRG 773 ==
LOC: YASAS 10:03 → Y3N 11:45
PROVIDERS: ADMIT Allergy & Immunology; ATTEND Surgery
PROC: HZ2ZZZZ Detoxification Services for Substance Abuse Treatment (ICD-10-PCS; principal; 2023-12-21)
DX: F11.23 Opioid dependence with withdrawal (principal); F14.20 Cocaine dependence, uncomplicated; F17.210 Nicotine dependence, cigarettes, uncomplicated; Z86.59 Personal history of other mental and behavioral disorders; Z59.00 Homelessness unspecified; Z56.0 Unemployment, unspecified
CPT/HCPCS: 36415; 80053; 80305; 80307; 85027; 86780; 87811; 93005; 93010

== ENCOUNTER 2023-12-26 11:02 | Inpatient (IN) | payer OTHER ==
[2023-12-26] MEDS ORDERED: guaiFENesin 600 MG TABLET.ER (FP) PO PRN (14:22)
[2023-12-26] MEDS ORDERED: hydrOXYzine PAMOATE 25 MG CAPSULE (FP) PO PRN (14:22)
[2023-12-26] MEDS ORDERED: POLYETHYLENE GLYCOL (HEALTHYLAX) 3350 17 GM PACKET PO PRN (14:22)
[2023-12-26] MEDS ORDERED: NALOXONE (NYS OPIOID OVERDOSE PROGRAM) 4 MG/0.1 ML SPRAY NS PRN (14:22)
[2023-12-26] MEDS ORDERED: MAG HYDROX/AL HYDROX/SIMETH 30 ML UNIT-DOSE CUP PO PRN (14:22)
[2023-12-26] MEDS ORDERED: IBUPROFEN 600 MG TABLET (FP) PO PRN (14:22)
[2023-12-26] MEDS ORDERED: BENZONATATE 200 MG CAPSULE PO PRN (14:22)
[2023-12-26] MEDS ORDERED: NICOTINE 14 MG/24 HOURS TOPICAL PATCH TD PRN ×2 (14:22→14:26)
[2023-12-26] MEDS ORDERED: MAGNESIUM HYDROX 2400MG/30ML ORAL SUSPENSION 30 ML CUP PO PRN (14:22)
[2023-12-26] MEDS ORDERED: METHOCARBAMOL 500 MG TABLET PO PRN (14:22)
[2023-12-26] MEDS ORDERED: NALOXONE HCL 0.4 MG/ML VIAL IVPUSH PRN (14:22)
[2023-12-26] MEDS ORDERED: LOPERAMIDE HCL 2 MG CAPSULE PO PRN (14:22)
[2023-12-26] MEDS ORDERED: ACETAMINOPHEN 325 MG TABLET (FP) PO PRN (14:22)
[2023-12-26] MEDS ORDERED: BENZOCAINE/MENTHOL (CHLORASEPTIC ) LOZENGE MM PRN (14:22)
[2023-12-26] MEDS: GABAPENTIN 300 MG CAPSULE PO ONE (15:08)
[2023-12-26] MEDS: CHLORHEXIDINE GLUCONATE 0.12% 15ML CUP MM SCH (21:34)
[2023-12-26] MEDS: GABAPENTIN 300 MG CAPSULE PO SCH (21:34)
[2023-12-26] MEDS: traZODone HCL 100 MG TABLET (FP) PO SCH (21:34)
[2023-12-26] MEDS: THIAMINE 100 MG TABLET PO SCH (21:34)
[2023-12-26] MEDS: MELATONIN 5 MG TABLETS PO SCH (21:34)
[2023-12-27] MEDS ORDERED: methaDONE HCL 10 MG TABLET PO SCH (06:00)
[2023-12-27] MEDS: methaDONE 80 MG, methaDONE 10 MG PO SCH (06:17)
[2023-12-27] MEDS: NICOTINE POLACRILEX 4 MG LOZENGE BC PRN (06:19)
[2023-12-27] MEDS: ARIPiprazole 5 MG TABLET PO SCH (10:22)
[2023-12-27] MEDS: PRENATAL VITAMINS W/ FOLIC ACID TABLET (FP) PO SCH (10:22)
[2023-12-27] MEDS: NICOTINE 21 MG/24 HOURS TOPICAL PATCH TD PRN (10:40)
[2023-12-27] MEDS: VENLAFAXINE HCL 150 MG E.R. CAPSULE PO SCH (11:16)
[2023-12-29] MEDS ORDERED: SODIUM CHLORIDE NASAL SPRAY 44 ML BOTTLE NS PRN (11:12)
[2023-12-30] MEDS: NICOTINE POLACRILEX 4 MG GUM BUC PRN (10:33)
[2023-12-31] MEDS: IBUPROFEN 400 MG TABLET (FP) PO PRN (08:53)
[2024-01-01] MEDS ORDERED: SENNOSIDES 8.6MG TABLET (FP) PO PRN (16:23)
[2024-01-16 06:31] VITALS: BP 108/77; PULSE 101; RESP 16; TEMP 97.1
== END 2024-01-16 09:10 | disposition home or self-care (01) | DRG 772 ==
LOC: YASAS 11:02 → Y3E 11:03
PROVIDERS: ADMIT Allergy & Immunology; ATTEND Psychiatry & Neurology Pain Medicine
PROC: HZ42ZZZ Group Counseling for Substance Abuse Treatment, Cognitive-Behavioral (ICD-10-PCS; principal; 2023-12-26)
DX: F14.20 Cocaine dependence, uncomplicated (principal); F11.20 Opioid dependence, uncomplicated; F17.210 Nicotine dependence, cigarettes, uncomplicated; F25.0 Schizoaffective disorder, bipolar type; F41.8 Other specified anxiety disorders; F43.10 Post-traumatic stress disorder, unspecified; K59.00 Constipation, unspecified; Z59.02 Unsheltered homelessness

== ENCOUNTER 2024-02-20 18:23 | Inpatient (IN) | payer OTHER ==
[2024-02-20 20:02] VITALS: BMI 18.2
[2024-02-20] MEDS ORDERED: IBUPROFEN 400 MG TABLET (FP) PO PRN (21:04)
[2024-02-20] MEDS ORDERED: guaiFENesin 600 MG TABLET.ER (FP) PO PRN (21:04)
[2024-02-20] MEDS ORDERED: MAGNESIUM HYDROX 2400MG/30ML ORAL SUSPENSION 30 ML CUP PO PRN (21:04)
[2024-02-20] MEDS ORDERED: BISMUTH SUBSALICYLATE 524 MG/30 ML PO PRN (21:04)
[2024-02-20] MEDS ORDERED: NALOXONE (NARCAN) HCL 4 MG/0.1 ML SPRAY NS PRN (21:04)
[2024-02-20] MEDS ORDERED: BENZOCAINE/MENTHOL (CHLORASEPTIC ) LOZENGE MM PRN (21:04)
[2024-02-20] MEDS ORDERED: BENZONATATE 200 MG CAPSULE PO PRN (21:04)
[2024-02-20] MEDS ORDERED: DICYCLOMINE HCL 10 MG CAPSULE PO PRN (21:04)
[2024-02-20] MEDS ORDERED: POLYETHYLENE GLYCOL (HEALTHYLAX) 3350 17 GM PACKET PO PRN (21:04)
[2024-02-20] MEDS ORDERED: P-EPHED 60MG/TRIPROLIDI 2.5MG TABLET PO PRN (21:04)
[2024-02-20] MEDS ORDERED: LOPERAMIDE HCL 2 MG CAPSULE PO PRN (21:04)
[2024-02-20] MEDS ORDERED: ACETAMINOPHEN 325 MG TABLET (FP) PO PRN (21:04)
[2024-02-20] MEDS ORDERED: MAG HYDROX/AL HYDROX/SIMETH 30 ML UNIT-DOSE CUP PO PRN (21:04)
[2024-02-20] MEDS ORDERED: ONDANSETRON *ODT* 4 MG TABLET SL PRN (21:04)
[2024-02-20] MEDS ORDERED: cloNIDine HCL 0.1 MG TABLET PO PRN (21:10)
[2024-02-20] MEDS ORDERED: CHLORHEXIDINE GLUCONATE 0.12% 15ML CUP MM PRN (21:22)
[2024-02-20] MEDS ORDERED: methaDONE HCL 10 MG TABLET (FOR DETOX USE ONLY) ONE (22:12)
[2024-02-20] MEDS ORDERED: MELATONIN 5 MG TABLETS ONE (22:13)
[2024-02-20] MEDS: methaDONE HCL 10 MG TABLET (FOR DETOX USE ONLY) PO ONE (22:25)
[2024-02-20] MEDS: MELATONIN 5 MG TABLETS PO SCH (22:26)
[2024-02-20] MEDS: THIAMINE 100 MG TABLET PO SCH (22:27)
[2024-02-21] MEDS: NICOTINE POLACRILEX 2 MG LOZENGE BC PRN (09:58)
[2024-02-21] MEDS: IBUPROFEN 600 MG TABLET (FP) PO PRN (09:59)
[2024-02-21] MEDS ORDERED: NICOTINE POLACRILEX 4 MG LOZENGE BC PRN (10:01)
[2024-02-21] MEDS: PRENATAL VITAMINS W/ FOLIC ACID TABLET (FP) PO SCH (10:03)
[2024-02-21] MEDS: ARIPiprazole 5 MG TABLET PO SCH (10:37)
[2024-02-21] MEDS: NICOTINE 14 MG/24 HOURS TOPICAL PATCH TD SCH (10:37)
[2024-02-21 11:44] LABS: HEMATOCRIT 38.2 % (35.4-49); MCH 29.4 pg (25.7-33.7); MCHC 34.1 g/dl (32.0-35.9); MEAN PLT VOLUME 9.5 fl (7.5-11.1); PLATELET COUNT 330 10^3/uL (134-434); RBC 4.44 M/mm3 (4.00-5.60); RDW 15.2 % (11.9-15.9); WHITE BLOOD COUNT 8.1 K/mm3 (4.0-10.0)
[2024-02-21] MEDS: VENLAFAXINE HCL 37.5 MG E.R. CAPSULE PO SCH (12:04)
[2024-02-21 13:47] LABS: CHLORIDE 101 mmol/L (98-107); POTASSIUM 3.5 mmol/L (3.5-5.1); SODIUM 137 mmol/L (136-145)
[2024-02-21 13:50] LABS: ALBUMIN 3.9 g/dl (3.4-5.0); BLOOD UREA NITROGEN 23.2 mg/dL (7-18); CALCIUM 9.2 mg/dL (8.5-10.1); CO2 27 mmol/L (21-32); GLUCOSE,RANDOM 90 mg/dL (74-106)
[2024-02-21 13:53] LABS: CREATININE 0.8 mg/dL (0.55-1.3); SGOT/AST 16 U/L (15-37); SGPT/ALT 24 U/L (13-61)
[2024-02-21 13:55] LABS: ALK PHOS 86 U/L (45-117); BILIRUBIN,TOTAL 0.6 mg/dL (0.2-1)
[2024-02-21 13:58] LABS: TOT PROT 7.6 g/dl (6.4-8.2)
[2024-02-21] MEDS: CEPHALEXIN 250 MG/5 ML ORAL SUSPENSION PO SCH (15:50)
[2024-02-21] MEDS: traZODone HCL 100 MG TABLET (FP) PO SCH (22:33)
[2024-02-22] MEDS: methaDONE HCL 10 MG TABLET (FOR DETOX USE ONLY) PO ONE (10:48)
[2024-02-22] MEDS: diazePAM 5 MG TABLET PO ONE (11:12)
[2024-02-22] MEDS: VENLAFAXINE HCL 150 MG E.R. CAPSULE PO SCH (11:44)
[2024-02-22] MEDS: CHLORHEXIDINE GLUCONATE 0.12% 15ML CUP MM SCH (11:44)
[2024-02-22] MEDS: METHOCARBAMOL 500 MG TABLET PO PRN (22:01)
[2024-02-23 06:49] VITALS: TEMP 97.7
[2024-02-23] MEDS: hydrOXYzine PAMOATE 25 MG CAPSULE (FP) PO PRN (09:40)
[2024-02-23 11:40] VITALS: BP 107/57; PULSE 92; RESP 18
[2024-02-23] MEDS ORDERED: CEPHALEXIN MONOHYDRATE 500 MG CAPSULE (UD) PO SCH (12:00)
[2024-02-24] MEDS ORDERED: methaDONE HCL 10 MG TABLET (FOR DETOX USE ONLY) PO ONE (10:00)
== END 2024-02-23 10:30 | disposition home or self-care (01) | DRG 773 ==
LOC: YASAS 18:23 → Y3N 21:33
PROVIDERS: ADMIT Allergy & Immunology; ATTEND Surgery
PROC: HZ2ZZZZ Detoxification Services for Substance Abuse Treatment (ICD-10-PCS; principal; 2024-02-20)
DX: F11.23 Opioid dependence with withdrawal (principal); F14.20 Cocaine dependence, uncomplicated; F17.210 Nicotine dependence, cigarettes, uncomplicated; F25.0 Schizoaffective disorder, bipolar type; S02.609D Fracture of mandible, unspecified, subsequent encounter for fracture with routine healing; X58.XXXD Exposure to other specified factors, subsequent encounter
CPT/HCPCS: 36415; 80053; 80305; 80307; 85027; 86780